=== PATIENT | male | born 1960 | race Caucasian/White ===

== ENCOUNTER 2024-01-18 03:38 | Emergency (ER) | payer OTHER, SELFPAY ==
[2024-01-18 03:45] VITALS: BP 154/81
[2024-01-18 04:06] VITALS: BMI 32.9
[2024-01-18 04:25] LABS: % Basophils 0.3 % (0-2); % Eosinophils 1.7 % (0-6); % Immature Granulocytes 1.6 % (0-0.5); % Lymphocytes 12.4 % (20.5-51.1); % Monocytes 10.2 % (1.7-9.3); % Neutrophils 73.8 % (42.2-75.2); Absolute Eosinophils 0.1 10^3/uL (0-0.7); Absolute Immature Granulocytes 0.1 10^3/uL (0-0.05); Absolute Lymphocytes 0.9 10^3/uL (1.2-3.4); Absolute Monocytes 0.7 10^3/uL (0.1-0.6); Absolute Neutrophils 5.1 10^3/uL (1.4-6.5); Hematocrit 41.4 % (39.0-52.0); Hemoglobin 13.4 g/dL (13.0-18.0); Mean Corp Hgb Conc. 32.4 g/dL (33.0-37.0); Mean Corpuscular Hgb 28.9 pg (27.0-31.0); Mean Corpuscular Volume 89.4 fL (80.0-94.0); Nucleated Red Blood Cells % 0 % (-); Platelet Count 130 10^3/uL (130-400); Red Blood Cell Count 4.63 10^6/uL (4.70-6.10); Red Cell Dist. Width 13.8 % (11.5-14.5)
[2024-01-18 04:42] LABS: Potassium 5.4 mmol/L (3.5-5.1)
[2024-01-18 04:43] LABS: ALT (SGPT) 18 U/L (0-50); AST (SGOT) 30 U/L (17-59); Albumin 4.3 g/dl (3.5-5.0); Alkaline Phosphatase 45 U/L (38-126); Blood Urea Nitrogen 38 mg/dl (9-20); Calcium 9.3 mg/dl (8.4-10.2); Carbon Dioxide 22 mmol/L (22-30); Chloride 105 mmol/L (98-107); Estimated Creatinine Clearance 67 ml/min; Glucose 338 mg/dl (70-99); Lipase 206 U/L (23-300); Sodium 135 mmol/L (135-145); Total Protein 6.7 g/dl (6.3-8.2); eGFR > 60.00
[2024-01-18] MEDS: ZOFRAN 4 MG IV (05:02)
[2024-01-18] MEDS: TORADOL 30 MG IM (05:04)
--- NOTE | 2024-01-18 05:12 | ED.GENMED ---
History of Present Illness
<NUNU Krishnamurthy - Last Filed: 01/18/24 07:11>
General
Chief Complaint: Flank Pain
Source: patient
Exam Limitations: none
Time Seen by Provider: 01/18/24 05:12
Nursing documentation reviewed up to this point in time: agreed with
History of Present Illness
History of Present Illness:
63 year old male presents for evaluation of left lower abdominal pain with radiation to the left flank. Pt reports at 0200 on 01/17 he began experiencing vague abdominal pain that progressed to LLQ pain with radiation to the left flank. Pain reached
an 8-03/23 but is currently 5/10 after receiving Toradol 30 mg IV. He has not had these sx in the past. Pt endorses associated N/V with 2 bouts of vomiting in the ED. He is not currently nauseas after receiving Zofran. Pt adds that he experienced 2-3
bouts of diarrhea yesterday, but denies pain and blood in the stool during these episodes. He has not taken any other medications for his sx. He denies fever, chills, fatigue, dysuria, increased urinary frequency, urgency, and hematuria.
Review of Systems
<NUNU Krishnamurthy - Last Filed: 01/18/24 07:11>
Review of Systems
Allergies reviewed?: Yes
Constitutional: Reports no symptoms
EENT: Reports no symptoms
Respiratory: Reports no symptoms
Cardiac: Reports no symptoms
ABD/GI: Reports abdominal pain (LLQ), nausea and vomiting (2 bouts in the ED)
: Reports flank pain (left)
Musculoskeletal: Reports no symptoms
Skin: Reports no symptoms
Neurological: Reports no symptoms
Endocrine: Reports no symptoms
Hematologic/Lymphatic: Reports no symptoms
Psychiatric: Reports no symptoms
Phy Exam
<NUNU Krishnamurthy - Last Filed: 01/18/24 07:11>
General Physical Exam
General Presentation: well appearing
General age: appears stated age
General Skin: warm
General Habitus: normal
General Mental: alert
General Hydration: appears well hydrated
Cardiovascular Exam
Cardiovascular Exam: regular rate/rhythm and no edema
Pulmonary Exam
Pulmonary Exam: lungs clear and no respiratory distress
Gastrointestinal Exam
Gastrointestinal Exam: normal bowel sounds, non tender (pain resolved with IV Toradol ), non distended and no cva tenderness
Neurological Exam
Neurological Exam: alert and oriented x3
Course
<Neto Ugarte, MA - Last Filed: 01/18/24 07:11>
Orders/Labs/Results
Orders:
Orders
01/18/24 03:53
IV Insert/Care/Rem.- Treatment PRN
01/18/24 04:17
Complete Blood Count/With Diff Urgent
Comprehensive Metabolic Panel Urgent
Lipase Urgent
01/18/24 04:59
Ketorolac [Toradol] 30 mg .ROUTE .STK-MED ONE
Ondansetron Injectable [Zofran] 4 mg .ROUTE .STK-MED ONE
01/18/24 05:01
Ondansetron Injectable [Zofran] 4 mg IV NOW STA
01/18/24 05:04
Ketorolac [Toradol] 30 mg IM NOW STA
01/18/24 05:12
CT Abd/pel Without Iv Or Oral Urgent
Comment:
Reason For Exam: acute left flank pain w n/v
0.9% Sodium Chloride 1000 ml [Nss] 1,000 ml IV BOLUS
01/18/24 07:35
Urinalysis Reflex To Culture Urgent
Date Specimen was Collected: 01/18/24
Time Specimen was Collected: 07:34
Abnormal Lab Results
01/18/24
04:17
RBC 4.63 L 10^6/uL
(4.70-6.10)
MCHC 32.4 L g/dL
(33.0-37.0)
MPV 11.0 H fL
(7.4-10.4)
Abs Immat Gran (auto) 0.1 H 10^3/uL
(0-0.05)
Absolute Lymphs (auto) 0.9 L 10^3/uL
(1.2-3.4)
Absolute Monos (auto) 0.7 H 10^3/uL
(0.1-0.6)
Immature Gran % 1.6 H %
(0-0.5)
Lymphocytes % 12.4 L %
(20.5-51.1)
Monocytes % 10.2 H %
(1.7-9.3)
Potassium 5.4 H mmol/L
(3.5-5.1)
BUN 38 H mg/dl
(9-20)
Glucose 338 H mg/dl
(70-99)
01/18/24 04:17
01/18/24 04:17
Vital Signs
Initial and Last Documented VS:
Initial Vital Signs
Temp Pulse Resp BP Pulse Ox
97.8 F 72 18 154/81 98
01/18/24 03:45 01/18/24 03:45 01/18/24 03:45 01/18/24 03:45 01/18/24 03:45
Last Documented Vital Signs
Temp Pulse Resp BP Pulse Ox
97.8 F 78 16 134/74 96
01/18/24 03:45 01/18/24 06:15 01/18/24 06:15 01/18/24 06:15 01/18/24 06:15
<Regina Thomason, DO - Last Filed: 01/18/24 07:55>
Orders/Labs/Results
Orders:
Orders
01/18/24 03:53
IV Insert/Care/Rem.- Treatment PRN
01/18/24 04:17
Complete Blood Count/With Diff Urgent
Comprehensive Metabolic Panel Urgent
Lipase Urgent
01/18/24 04:59
Ketorolac [Toradol] 30 mg .ROUTE .STK-MED ONE
Ondansetron Injectable [Zofran] 4 mg .ROUTE .STK-MED ONE
01/18/24 05:01
Ondansetron Injectable [Zofran] 4 mg IV NOW STA
01/18/24 05:04
Ketorolac [Toradol] 30 mg IM NOW STA
01/18/24 05:12
CT Abd/pel Without Iv Or Oral Urgent
Comment:
Reason For Exam: acute left flank pain w n/v
0.9% Sodium Chloride 1000 ml [Nss] 1,000 ml IV BOLUS
01/18/24 07:35
Urinalysis Reflex To Culture Urgent
Date Specimen was Collected: 01/18/24
Time Specimen was Collected: 07:34
Abnormal Lab Results
01/18/24
04:17
RBC 4.63 L 10^6/uL
(4.70-6.10)
MCHC 32.4 L g/dL
(33.0-37.0)
MPV 11.0 H fL
(7.4-10.4)
Abs Immat Gran (auto) 0.1 H 10^3/uL
(0-0.05)
Absolute Lymphs (auto) 0.9 L 10^3/uL
(1.2-3.4)
Absolute Monos (auto) 0.7 H 10^3/uL
(0.1-0.6)
Immature Gran % 1.6 H %
(0-0.5)
Lymphocytes % 12.4 L %
(20.5-51.1)
Monocytes % 10.2 H %
(1.7-9.3)
Potassium 5.4 H mmol/L
(3.5-5.1)
BUN 38 H mg/dl
(9-20)
Glucose 338 H mg/dl
(70-99)
01/18/24 04:17
01/18/24 04:17
Vital Signs
Initial and Last Documented VS:
Initial Vital Signs
Temp Pulse Resp BP Pulse Ox
97.8 F 72 18 154/81 98
01/18/24 03:45 01/18/24 03:45 01/18/24 03:45 01/18/24 03:45 01/18/24 03:45
Last Documented Vital Signs
Temp Pulse Resp BP Pulse Ox
97.8 F 78 16 134/74 96
01/18/24 03:45 01/18/24 06:15 01/18/24 06:15 01/18/24 06:15 01/18/24 06:15
<NUNU Krishnamurthy - Last Filed: 01/18/24 07:11>
MDM/Problems Addressed
Differential Diagnosis Includes:
nephrolithiasis, cystitis, pyelonephritis
MDM/Problems Addressed:
CT Abd/pel Without Iv Or Oral.
IV Toradol 30 mg.
<NUNU Krishnamurthy - Last Filed: 01/18/24 07:11>
*Critical Care Note
Total Time (30-74mins, 75-104mins- exclusive of procedures): Not Applicable
<Regina Thomason DO - Last Filed: 01/18/24 07:55>
*Radiology
Radiology exam reviewed: radiology read reviewed
*Pulse Oximetry
Patient hypoxic: no
ED Attending Note
<NUNU Krishnamurthy - Last Filed: 01/18/24 07:11>
-
Portions of this chart may have been created with voice recognition software.� Occasional wrong word or��sound alike� substitutions may have occurred due to the inherent limitations of voice recognition software.
<Regina Thomason DO - Last Filed: 01/18/24 07:55>
ED Attending Note
Patient seen and examined by attending physician: Yes
ED Attending Note:
This is a 63-year-old gentleman who has history of xia-nmpjnnt-alatbsrbs diabetes, hypertension, hyperlipidemia who presents with somewhat abrupt onset of moderate to severe left lateral flank pain that radiates to his left lower quadrant
accompanied with nausea, vomiting, restlessness and diaphoresis. No history of similar episodes of pain in the past.
He was feeling well prior to retiring to bed last night.
After an IV dose of Zofran and Toradol pain is now near completely resolved and no further nausea. Currently resting comfortably.
He has had no urinary complaints. He does note 2-3 episodes of loose nonbloody stools yesterday but no abdominal pain yesterday. He has not had a fever.
GENERAL: 63-year-old gentleman appears his stated age, awake and alert, pleasant, appears in no acute distress.
EYE: anicteric
NECK: Supple, nontender, no meningismus, no significant adenopathy.
ENT: oral mucosa is moist. No rhinorrhea.
CARDIAC: Regular rate and rhythm. no murmur.
LUNGS: Clear breath sounds bilaterally, no acute respiratory distress, no wheezes/rales/rhonchi
ABDOMEN: Rotund, soft, nondistended, without focal tenderness, no r/g, mild left CVA tenderness with percussion. Normoactive BS.
NEUROLOGICAL: Alert and oriented x3, no focal neuro deficits. Gait is montoya and steady.
SKIN: Warm and dry, normal color, skin intact. No rash.
MUSCULOSKELETAL: No C/C/E. peripheral pulses are full and equal b/l. No palpable tenderness.
PSYCH: Normal and appropriate interaction.
History and exam concerning for acute renal colic on the left. Other consideration is gastroenteritis, bowel obstruction.
Currently comfortable and near pain-free.
Labs show unremarkable CBC. Chemistries show
Moderately elevated random glucose of 338. Patient states his blood sugars have been running 150-180, fasting in the a.m.
Moderately elevated BUN of 38, creatinine normal at 1.3. Minimally elevated potassium of 5.4. No acidosis. Urinalysis is pending.
Will plan for CT abdomen pelvis.
01/18/2024 0749 AM
patient remains comfortable and pain-free.
CAT scan shows 6 mm obstructing stone proximal left ureter with mild hydroureteronephrosis.
Patient admits that he generally does not drink fluids well and has been working outdoors during these hot, humid days.
Discussed importance of staying well-hydrated on a daily basis.
With creatinine of 1.3 and obstructing stone we will avoid any further NSAIDs. A prescription for Vicodin has been provided for as needed pain and Zofran for as needed nausea.
Will refer to urology for follow-up.
Awaiting urinalysis results.
Return precautions discussed.
Discharge Plan
Departure
Patient Disposition: Home (Routine Discharge)
Date of Disposition: 01/18/24
Time of Disposition: 07:50
Patient with high blood pressure during this ER visit?: No
Condition: Good
Discharge Problem:
Calculus of proximal left ureter
Instructions: Kidney Stones (DC), How to Strain Your Urine
Prescriptions:
New
ondansetron 4 mg tablet,disintegrating
4 mg PO QID PRN (Reason: nausea and vomiting) Qty: 20 0RF
hydrocodone-acetaminophen 5-300 mg tablet
1 tab PO QIDPRN PRN (Reason: Pain) Qty: 12 0RF
No Action
glipizide 10 mg Tablet
10 mg PO BID
simvastatin 10 mg Tablet
10 mg PO DAILY
pioglitazone 45 mg Tablet
45 mg PO DAILY
lisinopril 10 mg Tablet
10 mg PO DAILY
aspirin 81 mg Tablet
81 mg PO DAILY
Janumet 50-1,000 mg Tablet
1 tab PO BID
Referrals:
Saul Chávez Jr., MD [Active] - Call in 1-3 days for appt
Te Ba MD [Family Provider] -
Interventions
Interventions:
*Risk Screen - Suicide Last Done: 01/18/24 03:45
*General Assessment Last Done: 01/18/24 04:00
*Neglect/Abuse Screening Last Done: 01/18/24 03:45
ED- Fall Risk Assessment Last Done: 01/18/24 04:00
*ED COVID-19 Vaccine History Last Done: 01/18/24 04:00
TH-Azoyfv-Xwzqppbrnu Assessment Last Done: 01/18/24 04:00
ED-Male Genitourinary Assessment Last Done: 01/18/24 04:00
Discharge Date and Time
Print Language: PALAUAN
[2024-01-18] MEDS: NSS 1000 IV (05:16)
[2024-01-18 06:15] VITALS: BP 134/74
[2024-01-18 07:47] LABS: Urine Albumin Negative (Neg - Trace); Urine Bilirubin Negative (Negative); Urine Character Clear (Clear); Urine Color Yellow; Urine Glucose 3+ (Negative); Urine Ketone Trace (Negative); Urine Leukocyte Negative (Negative); Urine Nitrite Negative (Negative); Urine Occult Blood 4+ (Negative); Urine Urobilinogen Negative (Neg - 1+)
[2024-01-18 07:59] LABS: Urine Bacteria Few (Negative); Urine Squamous Cell 0-2 /LPF (Few); Urine White Cell 0-2 /HPF (0-5)
== END 2024-01-18 08:29 | disposition home or self-care (01) ==
LOC: EMR 03:38
PROVIDERS: EMERGENCY PHYSICIAN Emergency Medicine; FAMILY PHYSICIAN Family Medicine
DX: R10.32 Left lower quadrant pain (principal); R11.2 Nausea with vomiting, unspecified; E11.9 Type 2 diabetes mellitus without complications; E78.00 Pure hypercholesterolemia, unspecified; I10 Essential (primary) hypertension; N13.2 Hydronephrosis with renal and ureteral calculous obstruction
CPT/HCPCS: 99284; 96374; 96372; 96361; 74176; 80053; 81003; 81015; 83690; 85025

== ENCOUNTER 2024-02-22 06:07 | Emergency (ER) | payer OTHER, SELFPAY ==
[2024-02-22 06:09] VITALS: BP 170/100
[2024-02-22 07:04] VITALS: BP 169/102
[2024-02-22 07:10] VITALS: BMI 32.5
[2024-02-22 07:37] LABS: % Basophils 0.6 % (0-2); % Eosinophils 2.7 % (0-6); % Immature Granulocytes 2.3 % (0-0.5); % Monocytes 12.4 % (1.7-9.3); Absolute Eosinophils 0.2 10^3/uL (0-0.7); Absolute Immature Granulocytes 0.2 10^3/uL (0-0.05); Absolute Monocytes 0.9 10^3/uL (0.1-0.6); Absolute Neutrophils 4.8 10^3/uL (1.4-6.5); Hematocrit 37.5 % (39.0-52.0); Hemoglobin 12.5 g/dL (13.0-18.0); Mean Corp Hgb Conc. 33.3 g/dL (33.0-37.0); Mean Corpuscular Hgb 29.3 pg (27.0-31.0); Mean Corpuscular Volume 87.8 fL (80.0-94.0); Mean Platelet Volume 10.8 fL (7.4-10.4); Nucleated Red Blood Cells % 0 % (-); Platelet Count 159 10^3/uL (130-400); Red Blood Cell Count 4.27 10^6/uL (4.70-6.10); Red Cell Dist. Width 14.5 % (11.5-14.5)
[2024-02-22 07:43] LABS: ALT (SGPT) 15 U/L (0-50); AST (SGOT) 18 U/L (17-59); Albumin 4.6 g/dl (3.5-5.0); Alkaline Phosphatase 70 U/L (38-126); Blood Urea Nitrogen 32 mg/dl (9-20); Calcium 9.9 mg/dl (8.4-10.2); Carbon Dioxide 27 mmol/L (22-30); Chloride 103 mmol/L (98-107); Estimated Creatinine Clearance 57 ml/min; Glucose 299 mg/dl (70-99); Potassium 5.7 mmol/L (3.5-5.1); Sodium 136 mmol/L (135-145); Total Bilirubin 0.6 mg/dl (0.2-1.3); eGFR 51.99
--- NOTE | 2024-02-22 07:46 | ED.GENMED ---
History of Present Illness
General
Chief Complaint: Extremity Pain (non-traumatic)
Source: patient
Time Seen by Provider: 02/22/24 07:38
History of Present Illness
History of Present Illness:
63-year-old male with past medical history of kjf-nsziumm-lrvdjevti diabetes presenting to the emergency department for evaluation of lower back pain that has been ongoing for approximately 2 to 3 weeks, usually bothering him more so at nighttime,
pain will intermittently radiate down the right leg but this has gotten more constant and severe over the last 48 hours. Patient sister has chronic back pain and sees an roller skate assembler which patient decided to go see on and he reports he
had about 24 hours of relief but then pain started back up again. Last night patient states the pain was at its worst and was unrelenting which is what prompted him to come to the ER this morning. Patient also notes that he was here in this ER
about 7 weeks ago and was diagnosed with a kidney stone which he reportedly passed around 1:30 AM last night. Patient denies any fevers, chills, rigors, nausea, vomiting, bowel changes, current urinary symptoms, numbness to the right lower
extremity (does admit to some occasional paresthesia when pain is worse), saddle anesthesia, traumatic injuries or any other concerns. He denies any history of similar. Social history noncontributory and otherwise no red flag symptoms for pain.
Past History
Past History
ED Past Medical History: Cancer (Melanoma) and NIDDM
ED Past Surgical History: None
Social History
Tobacco: Non-smoker
Alcohol: None
Drug: None
Personal:
Living: alone
Employment: Employed
Review of Systems
Review of Systems
All Other Systems: ROS reviewed and negative except as documented in HPI and ROS
Phy Exam
Physical Exam
Physical Exam:
GENERAL: Alert , in no apparent distress at rest but does appear uncomfortable with movements
EYE: clear conjunctiva b/l
NECK: Supple
ENT: o/p clr, mmm.
ABDOMEN: Soft, without focal tenderness, no r/g, no cvat
BACK: Normal range of motion but does have pain with forward flexion, mild right paralumbar tenderness, no midline bony tenderness, no rashes
NEUROLOGICAL: Alert and oriented, no focal neuro deficits. Patellar deep tendon reflexes intact and equal bilaterally, sensation grossly intact and equal to light touch bilateral lower extremities, negative straight leg raise however patient does
report he feels a tightening and pain in the right part of his lower back
SKIN: Warm and dry, skin intact.
MUSCULOSKELETAL: No edema, well perfused. EHL intact bilaterally
PSYCH: Normal and appropriate interaction.
Scores
Heart Failure Risk
Heart Failure Risk Score: Not Applicable
Heart Score for Chest Pain Patients
STEMI patient?: Not applicable
Withdrawal Assessment of Alcohol
Withdrawal Assessment Completed?: Not applicable
Course
Orders/Labs/Results
Orders:
Orders
02/22/24 07:20
CMP [Comprehensive Metabolic Panel] Urgent
Complete Blood Count/With Diff Urgent
02/22/24 07:46
CR Lumbar Spine Comp Min 4 Vw* Urgent
Comment:
Reason For Exam: right sided lower back pain going in to leg
02/22/24 09:14
Ibuprofen [Motrin] 600 mg PO NOW STA
Lidocaine [Lidocaine 4% Patch] 1 patch TOPICAL NOW STA
Apply Lidocaine patch(s) to:: right lower back
02/22/24 09:22
Urinalysis Reflex To Culture Urgent
Date Specimen was Collected: 02/22/24
Time Specimen was Collected: 07:54
Abnormal Lab Results
02/22/24
07:20
RBC 4.27 L 10^6/uL
(4.70-6.10)
Hgb 12.5 L g/dL
(13.0-18.0)
Hct 37.5 L %
(39.0-52.0)
MPV 10.8 H fL
(7.4-10.4)
Abs Immat Gran (auto) 0.2 H 10^3/uL
(0-0.05)
Absolute Lymphs (auto) 1.0 L 10^3/uL
(1.2-3.4)
Absolute Monos (auto) 0.9 H 10^3/uL
(0.1-0.6)
Immature Gran % 2.3 H %
(0-0.5)
Lymphocytes % 14.0 L %
(20.5-51.1)
Monocytes % 12.4 H %
(1.7-9.3)
Potassium 5.7 H mmol/L
(3.5-5.1)
BUN 32 H mg/dl
(9-20)
Creatinine 1.5 H mg/dL
(0.7-1.3)
Glucose 299 H mg/dl
(70-99)
02/22/24 07:20
02/22/24 07:20
Vital Signs
Initial and Last Documented VS:
Initial Vital Signs
Temp Pulse Resp BP Pulse Ox
98.1 F 86 22 170/100 100
02/22/24 06:09 02/22/24 06:09 02/22/24 06:09 02/22/24 06:09 02/22/24 06:09
Last Documented Vital Signs
Temp Pulse Resp BP Pulse Ox
98.1 F 83 18 169/102 98
02/22/24 06:09 02/22/24 07:15 02/22/24 07:15 02/22/24 07:04 02/22/24 07:10
MDM/Problems Addressed
Differential Diagnosis Includes:
Sciatica, lumbar strain, degenerative disc disease/disc herniation, nerve impingement, no symptoms to suggest infectious etiology such as osteomyelitis/discitis or spinal epidural abscess/psoas muscle abscess
MDM/Problems Addressed:
63-year-old male presenting to the emergency department for evaluation of right-sided lower back pain that has been ongoing for about 2 to 3 weeks, acutely worse over the last 48 hours. No relief with Tylenol. Patient noting new symptoms over the
last few days with pain now radiating down his leg on the right side as well as some intermittent episodes of his right leg giving out. States currently pain is under control as he is laying flat and not moving. He is declining anything for pain
here in the ER presently. Based off of exam I am most suspicious for degenerative disc disease/disc herniation or small nerve impingement. Anticipate treatment with anti-inflammatories, steroid taper, muscle relaxant and topical agents. Discussed
with patient that at this time he does not need emergent MRI however he may need an outpatient MRI to further investigate cause of pain. Patient will follow-up with primary care provider. Anticipate discharge home.
Patient did have a CT scan done on January 18, 2024 which noted bilateral L5 spondylolysis as well as L5 spondylolisthesis and L5 and S1 degenerative disc space narrowing
*Radiology
Radiology exam reviewed: preliminary read by ED provider (degenerative changes)
*Pulse Oximetry
Patient hypoxic: no
*Critical Care Note
Total Time (30-74mins, 75-104mins- exclusive of procedures): Not Applicable
Data Reviewed
Review of Other/Old Records Reveals: Labs and Records
Source: patient
Patient Management
Escalation/DeEscalation of care consider admission/obs:
Patient labs noted for LESLIE. suspect this is related to recently passed kidney stone. XR does show degenerative changes most pronounced at L5-S1. I still suspect this is most likely muscular in origin. Advised close follow up with PCP especially to
have labs repeated. Patient informed of elevated glucose as well. Aware of return precautions to ED.
ED Attending Note
-
Portions of this chart may have been created with voice recognition software.� Occasional wrong word or��sound alike� substitutions may have occurred due to the inherent limitations of voice recognition software.
Discharge Plan
Departure
Patient Disposition: Home (Routine Discharge)
Date of Disposition: 02/22/24
Time of Disposition: 09:14
Patient with high blood pressure during this ER visit?: Yes
Discharge Problem:
Lower back pain, LESLIE (acute kidney injury), Diabetes
Instructions: Low Back Pain (DC)
Prescriptions:
New
hydrocodone-acetaminophen 5-300 mg tablet
1 tab PO BID PRN (Reason: Pain) Qty: 6 0RF
naproxen 500 mg tablet
500 mg PO BID PRN (Reason: Pain) Qty: 10 0RF
No Action
glipizide 10 mg Tablet
10 mg PO BID
simvastatin 10 mg Tablet
10 mg PO DAILY
pioglitazone 45 mg Tablet
45 mg PO DAILY
lisinopril 10 mg Tablet
10 mg PO DAILY
aspirin 81 mg Tablet
81 mg PO DAILY
Janumet 50-1,000 mg Tablet
1 tab PO BID
ondansetron 4 mg tablet,disintegrating
4 mg PO QID PRN (Reason: nausea and vomiting) Qty: 20 0RF
Referrals:
Te Ba MD [Family Provider] -
Interventions
Interventions:
*Risk Screen - Suicide Last Done: 02/22/24 06:09
*General Assessment Last Done: 02/22/24 07:10
*Neglect/Abuse Screening Last Done: 02/22/24 06:09
ED- Fall Risk Assessment Last Done: 02/22/24 07:10
*ED COVID-19 Vaccine History Last Done: 02/22/24 07:10
*Nursing Disposition Last Done: 02/22/24 09:33
ED-Skin Assessment Last Done: 02/22/24 07:10
ED-Peripheral Vascular Assessment Last Done: 02/22/24 07:10
ED-Musculoskeletal Assessment Last Done: 02/22/24 07:10
Discharge Date and Time
Discharge Date/Time: 02/22/24 09:33
Print Language: SENEGALESE
[2024-02-22] MEDS: MOTRIN 600 MG PO (09:17)
[2024-02-22] MEDS: LIDOCAINE 4% PATCH 1 PATCH TOPICAL (09:18)
[2024-02-22 10:02] LABS: Urine Albumin Negative (Neg - Trace); Urine Bilirubin Negative (Negative); Urine Character Clear (Clear); Urine Color Yellow; Urine Glucose 3+ (Negative); Urine Ketone Negative (Negative); Urine Leukocyte 1+ (Negative); Urine Nitrite Negative (Negative); Urine Occult Blood Trace (Negative); Urine Specific Gravity 1.015 (<1.030); Urine Urobilinogen Negative (Neg - 1+)
[2024-02-22 10:36] LABS: Urine Bacteria Few (Negative); Urine Red Blood Cell 0-2 /HPF (0-2); Urine White Cell 26-30 /HPF (0-5)
== END 2024-02-22 09:33 | disposition home or self-care (01) ==
LOC: EMR 06:07
PROVIDERS: Physician Assistant Medical; EMERGENCY PHYSICIAN Emergency Medicine; FAMILY PHYSICIAN Family Medicine
DX: M54.50 Low back pain, unspecified (principal); M79.604 Pain in right leg; R20.2 Paresthesia of skin; N17.9 Acute kidney failure, unspecified; E11.9 Type 2 diabetes mellitus without complications; M51.37 Other intervertebral disc degeneration, lumbosacral region; M43.17 Spondylolisthesis, lumbosacral region; Z85.820 Personal history of malignant melanoma of skin; Z87.442 Personal history of urinary calculi; Z79.82 Long term (current) use of aspirin
CPT/HCPCS: 99283; 72110; 80053; 81003; 81015; 85025; 87086

== ENCOUNTER 2024-02-27 15:54 | Inpatient (IN) | payer OTHER, SELFPAY ==
[2024-02-27] VITALS (12 sets, daily range): BP systolic 123–163; BP diastolic 79–102; BMI 31.9
--- NOTE | 2024-02-27 11:39 | ED.GENMED ---
History of Present Illness
<Fredi Floyd PA-C - Last Filed: 02/27/24 14:45>
General
Chief Complaint: Musculo-Skeletal Complaint
Source: patient
Time Seen by Provider: 02/27/24 11:19
History of Present Illness
History of Present Illness:
63-year-old male with past medical history of vqc-jijyisi-jtpzxwynu diabetes presenting to the emergency department for reevaluation after being seen here 5 days ago and diagnosed with degenerative changes within the lumbar spine as the cause of his
back pain presenting back to the emergency department for progression of weakness to his bilateral lower extremities, estimates 6-7 falls within the 5 days and feeling of unsteadiness when he walks. Patient still notes continued radicular pain
mainly to the right leg. He is seen the chiropractor twice but without any relief. Patient contacted his primary care provider today who states due to the symptoms would recommend going to the ER for further evaluation. Patient notes that he has
been unable to monitor his blood sugars at home but is scheduled to get a new test strips kit on Friday. He does report good compliance with his diabetes medications. Patient notes that over the last 5 days he has intermittently dribbled some
urine but still feels as if he is emptying his bladder completely and had a normal bowel movement this morning. Patient still notes the paresthesias to the right leg but also now noting he feels these paresthesias within the groin region as well.
Past History
<Fredi Floyd PA-C - Last Filed: 02/27/24 14:45>
Past History
ED Past Medical History: Cancer (Melanoma) and NIDDM
ED Past Surgical History: None
Social History
Tobacco: Non-smoker
Alcohol: None
Drug: None
Personal:
Living: alone
Employment: Employed
Review of Systems
<Fredi Floyd PA-C - Last Filed: 02/27/24 14:45>
Review of Systems
All Other Systems: ROS reviewed and negative except as documented in HPI and ROS
Phy Exam
<Fredi Floyd PA-C - Last Filed: 02/27/24 14:45>
Physical Exam
Physical Exam:
GENERAL: Alert , in no apparent distress
EYE: clear conjunctiva b/l
NECK: Supple
ENT: mmm.
CARDIAC: Regular rate and rhythm .
LUNGS: Clear breath sounds bilaterally, no acute respiratory distress, no wheezes/rales/rhonchi
ABDOMEN: Soft, without focal tenderness, no r/g, no cvat
BACK: Normal range of motion, no focal tenderness, no midline bony tenderness, no rashes
Rectal exam: Normal rectal tone
NEUROLOGICAL: Alert and oriented, no focal neuro deficits. Patellar deep tendon reflexes absent bilaterally, sensation diminished bilaterally, right worse than left. Strength to the lower extremities is 4 out of 5 to the right, 4+ out of 5 to the
left. Negative straight leg raise bilateral
SKIN: Warm and dry, skin intact.
MUSCULOSKELETAL: No edema, well perfused. EHL intact bilaterally
PSYCH: Normal and appropriate interaction.
Scores
<Fredi Floyd PA-C - Last Filed: 02/27/24 14:45>
Heart Failure Risk
Heart Failure Risk Score: Not Applicable
Heart Score for Chest Pain Patients
STEMI patient?: Not applicable
Withdrawal Assessment of Alcohol
Withdrawal Assessment Completed?: Not applicable
Course
<Fredi Floyd PA-C - Last Filed: 02/27/24 14:45>
Orders/Labs/Results
Orders:
Orders
02/27/24 11:46
Basic Metabolic Panel Urgent
CRP [C-Reactive Protein] Urgent
Complete Blood Count/With Diff Urgent
ESR [Erythrocyte Sed Rate] Urgent
Hemoglobin A1c [Glycohemoglobin (HgbA1c)] Urgent
PTT Urgent
Prothrombin Time Urgent
02/27/24 12:05
Orbits Pre MRI CR [CR Orbits - Pre Mri] Urgent
Comment:
Reason For Exam: pre-MRI, previous injury
02/27/24 13:05
Urinalysis Reflex To Culture Urgent
Date Specimen was Collected: 02/27/24
Time Specimen was Collected: 13:00
02/27/24 14:28
EMG [Electromyography] Routine
Reason for Exam: ?gbs; 4 limb
02/27/24 14:33
MR Lumbar W/o & With Contrast Routine
Comment:
Reason For Exam: lower extremity weakness, no reflexes, back pain
Recent pill cam endoscopy?: No
02/27/24 14:39
Pft Nif [RESP] Stat
Vital Capacity [RESP] Stat
Quantity: 1
02/27/24 20:00
Pft Nif [RESP] BID
Vital Capacity [RESP] BID
Quantity: 6
02/28/24 08:00
Pft Nif [RESP] BID
Vital Capacity [RESP] BID
Quantity: 6
02/28/24 20:00
Pft Nif [RESP] BID
Vital Capacity [RESP] BID
Quantity: 6
02/29/24 08:00
Pft Nif [RESP] BID
Vital Capacity [RESP] BID
Quantity: 6
02/29/24 20:00
Pft Nif [RESP] BID
Vital Capacity [RESP] BID
Quantity: 6
03/01/24 08:00
Pft Nif [RESP] BID
Vital Capacity [RESP] BID
Quantity: 6
Abnormal Lab Results
02/27/24 02/27/24
11:46 13:05
RBC 4.36 L 10^6/uL
(4.70-6.10)
Hct 38.6 L %
(39.0-52.0)
RDW 14.6 H %
(11.5-14.5)
MPV 10.5 H fL
(7.4-10.4)
Abs Immat Gran (auto) 0.1 H 10^3/uL
(0-0.05)
Absolute Lymphs (auto) 0.9 L 10^3/uL
(1.2-3.4)
Absolute Monos (auto) 1.0 H 10^3/uL
(0.1-0.6)
Immature Gran % 1.4 H %
(0-0.5)
Lymphocytes % 13.2 L %
(20.5-51.1)
Monocytes % 13.6 H %
(1.7-9.3)
Sodium 132 L mmol/L
(135-145)
Potassium 5.2 H mmol/L
(3.5-5.1)
Carbon Dioxide 21 L mmol/L
(22-30)
BUN 39 H mg/dl
(9-20)
Glucose 390 H mg/dl
(70-99)
Hemoglobin A1c 8.7 H %
(4.0-5.6)
Urine Glucose 3+ A
(Negative)
02/27/24 11:46
02/27/24 11:46
Vital Signs
Initial and Last Documented VS:
Initial Vital Signs
Temp Pulse Resp BP Pulse Ox
98.6 F 107 18 149/102 96
02/27/24 11:10 02/27/24 11:10 02/27/24 11:10 02/27/24 11:10 02/27/24 11:10
Last Documented Vital Signs
Temp Pulse Resp BP Pulse Ox
98.6 F 110 16 163/85 98
02/27/24 11:10 02/27/24 14:03 02/27/24 14:03 02/27/24 14:00 02/27/24 14:03
<Jayesh Odonnell MD - Last Filed: 02/27/24 12:12>
Orders/Labs/Results
Orders:
Orders
02/27/24 11:46
Basic Metabolic Panel Urgent
CRP [C-Reactive Protein] Urgent
Complete Blood Count/With Diff Urgent
ESR [Erythrocyte Sed Rate] Urgent
Hemoglobin A1c [Glycohemoglobin (HgbA1c)] Urgent
PTT Urgent
Prothrombin Time Urgent
02/27/24 12:05
Orbits Pre MRI CR [CR Orbits - Pre Mri] Urgent
Comment:
Reason For Exam: pre-MRI, previous injury
02/27/24 13:05
Urinalysis Reflex To Culture Urgent
Date Specimen was Collected: 02/27/24
Time Specimen was Collected: 13:00
02/27/24 14:28
EMG [Electromyography] Routine
Reason for Exam: ?gbs; 4 limb
02/27/24 14:33
MR Lumbar W/o & With Contrast Routine
Comment:
Reason For Exam: lower extremity weakness, no reflexes, back pain
Recent pill cam endoscopy?: No
02/27/24 14:39
Pft Nif [RESP] Stat
Vital Capacity [RESP] Stat
Quantity: 1
02/27/24 20:00
Pft Nif [RESP] BID
Vital Capacity [RESP] BID
Quantity: 6
02/28/24 08:00
Pft Nif [RESP] BID
Vital Capacity [RESP] BID
Quantity: 6
02/28/24 20:00
Pft Nif [RESP] BID
Vital Capacity [RESP] BID
Quantity: 6
02/29/24 08:00
Pft Nif [RESP] BID
Vital Capacity [RESP] BID
Quantity: 6
02/29/24 20:00
Pft Nif [RESP] BID
Vital Capacity [RESP] BID
Quantity: 6
03/01/24 08:00
Pft Nif [RESP] BID
Vital Capacity [RESP] BID
Quantity: 6
Abnormal Lab Results
02/27/24 02/27/24
11:46 13:05
RBC 4.36 L 10^6/uL
(4.70-6.10)
Hct 38.6 L %
(39.0-52.0)
RDW 14.6 H %
(11.5-14.5)
MPV 10.5 H fL
(7.4-10.4)
Abs Immat Gran (auto) 0.1 H 10^3/uL
(0-0.05)
Absolute Lymphs (auto) 0.9 L 10^3/uL
(1.2-3.4)
Absolute Monos (auto) 1.0 H 10^3/uL
(0.1-0.6)
Immature Gran % 1.4 H %
(0-0.5)
Lymphocytes % 13.2 L %
(20.5-51.1)
Monocytes % 13.6 H %
(1.7-9.3)
Sodium 132 L mmol/L
(135-145)
Potassium 5.2 H mmol/L
(3.5-5.1)
Carbon Dioxide 21 L mmol/L
(22-30)
BUN 39 H mg/dl
(9-20)
Glucose 390 H mg/dl
(70-99)
Hemoglobin A1c 8.7 H %
(4.0-5.6)
Urine Glucose 3+ A
(Negative)
02/27/24 11:46
02/27/24 11:46
Vital Signs
Initial and Last Documented VS:
Initial Vital Signs
Temp Pulse Resp BP Pulse Ox
98.6 F 107 18 149/102 96
02/27/24 11:10 02/27/24 11:10 02/27/24 11:10 02/27/24 11:10 02/27/24 11:10
Last Documented Vital Signs
Temp Pulse Resp BP Pulse Ox
98.6 F 110 16 163/85 98
02/27/24 11:10 02/27/24 14:03 02/27/24 14:03 02/27/24 14:00 02/27/24 14:03
<Fredi Floyd PA-C - Last Filed: 02/27/24 14:45>
MDM/Problems Addressed
Differential Diagnosis Includes:
Cauda equina, abscess, disc herniation/nerve impingement, Guillain-Angel�
MDM/Problems Addressed:
63-year-old male presenting the ER with gradually worsening weakness to the bilateral lower extremities however right is worse than left. Seen in the ER 5 days ago and had x-ray done which showed L5 degenerative changes which correlated with CT
findings from a few weeks prior. In that time patient has had multiple falls. He has objective findings of weakness, absent lower extremity reflexes and sensory deficits. It was noted on patient's last visit to the ER that he had significantly
elevated glucose. Is certainly possible patient may have abscess or other infectious etiology from uncontrolled diabetes. Patient may also also have degenerative findings/nerve or spinal cord impingement. Discussed with radiology and we will
obtain stat MRI with and without contrast of the lumbar spine. Fall precautions initiated. Anticipate admission
Chronic conditions affecting care: DM
<Fredi Floyd PA-C - Last Filed: 02/27/24 14:45>
*Radiology
Radiology exam reviewed: preliminary read by ED provider (no FB on orbit XR)
*Pulse Oximetry
Patient hypoxic: no
*Critical Care Note
Total Time (30-74mins, 75-104mins- exclusive of procedures): Not Applicable
Data Reviewed
Review of Other/Old Records Reveals: Labs, Records and Radiology Studies
<Fredi Floyd PA-C - Last Filed: 02/27/24 14:45>
Comment
Comment:
orbit XR ordered for pre-MRI testing. No FB seen.
Patient Management
Discussion with other providers: Hospitalist and Sewer Connector
Escalation/DeEscalation of care consider admission/obs:
Neuro came to ED to see patient. clinical concern for guillan barre. Still needs MRI. Plan to admit to hospitalist team for continued evaluation. Hospitalist accepts for continued eval and treatment
ED Attending Note
<Fredi Floyd PA-C - Last Filed: 02/27/24 14:45>
-
Portions of this chart may have been created with voice recognition software.� Occasional wrong word or��sound alike� substitutions may have occurred due to the inherent limitations of voice recognition software.
<Jayesh Odonnell MD - Last Filed: 02/27/24 12:12>
ED Attending Note
Patient seen and examined by attending physician: Yes
I performed the substantive portion of visit, reviewed & personally made and approve the management plan that is documented in note by myself or BARRERA.: Yes
ED Attending Note:
63-year-old male with progressive lower extremity weakness right greater than left and some low back pain. Symptoms started 2 weeks ago. Seen 5 days ago for same. No fever or chills. Notes some mild urinary symptoms. No bladder or bowel
incontinence however. Does volunteer that he has some tingling in his perineal area.
On exam patient is nontoxic in no distress
Warm and dry. Perfusing well. No respiratory distress. Heart regular rate and rhythm. No murmur. Abdomen soft and nontender. Good perfusion to the extremities. Cranial nerves II through XII intact. No drift. [id number] normal. Patient
has no patellar reflexes. Some difficulty raising his legs bilaterally right greater than left. He can lift them off the stretcher but with some difficulty. Plantar dorsiflexion of the feet intact. Pinprick and light touch intact except for
possibly some difficulties with the right foot. Rectal tone is normal. No obvious perianal or perineal paresthesias.
Differential includes a lumbar etiology which would include abscess although no infectious symptoms, hematoma although no blood thinners. Differential would also include Guillain-Angel� syndrome. Lumbar MRI with and without contrast ordered.
Neurology was contacted for their involvement. Patient clearly warrants admission. Would likely need transfer if there was an acute neurosurgical emergency.
Discharge Plan
Departure
Patient Disposition: Admit
Date of Disposition: 02/27/24
Time of Disposition: 14:26
Presentation/result/management discussed w/ accepting MD/DO: Hospitalist
Discharge Problem:
Leg weakness, bilateral, Dorsalgia, Uncontrolled diabetes mellitus
Prescriptions:
No Action
glipizide 10 mg Tablet
10 mg PO BID
simvastatin 10 mg Tablet
10 mg PO HS
pioglitazone 45 mg Tablet
45 mg PO DAILY
lisinopril 10 mg Tablet
10 mg PO HS
Janumet 50-1,000 mg Tablet
1 tab PO BID
Theragen Tablet
1 tab PO DAILY
aspirin 81 mg Tablet,Delayed Release (Dr/Ec)
81 mg PO HS
ibuprofen 200 mg Tablet
600 mg PO Q6HPRN PRN (Reason: mild pain)
Referrals:
Te Ba MD [Family Provider] -
Interventions
Interventions:
*Risk Screen - Suicide Last Done: 02/27/24 11:10
*General Assessment Last Done: 02/27/24 11:10
*Neglect/Abuse Screening Last Done: 02/27/24 11:10
*ED COVID-19 Vaccine History Last Done: 02/27/24 11:30
ED-Musculoskeletal Assessment Last Done: 02/27/24 11:30
Discharge Date and Time
Print Language: HEBREW
[2024-02-27 11:55] LABS: % Basophils 0.4 % (0-2); % Eosinophils 2.1 % (0-6); % Immature Granulocytes 1.4 % (0-0.5); % Lymphocytes 13.2 % (20.5-51.1); % Monocytes 13.6 % (1.7-9.3); % Neutrophils 69.3 % (42.2-75.2); Absolute Eosinophils 0.2 10^3/uL (0-0.7); Absolute Immature Granulocytes 0.1 10^3/uL (0-0.05); Absolute Lymphocytes 0.9 10^3/uL (1.2-3.4); Absolute Neutrophils 4.9 10^3/uL (1.4-6.5); Hematocrit 38.6 % (39.0-52.0); Mean Corp Hgb Conc. 33.7 g/dL (33.0-37.0); Mean Corpuscular Hgb 29.8 pg (27.0-31.0); Mean Corpuscular Volume 88.5 fL (80.0-94.0); Mean Platelet Volume 10.5 fL (7.4-10.4); Nucleated Red Blood Cells % 0 % (-); Platelet Count 148 10^3/uL (130-400); Red Blood Cell Count 4.36 10^6/uL (4.70-6.10); Red Cell Dist. Width 14.6 % (11.5-14.5); White Blood Cell Count 7.1 10^3/uL (4.8-10.8)
[2024-02-27 12:05] LABS: INR 1.02; PT 13.3 Sec (11.4-14.6)
[2024-02-27 12:06] LABS: APTT 25.9 Sec (23.4-35.0)
[2024-02-27 12:09] LABS: Blood Urea Nitrogen 39 mg/dl (9-20); Calcium 9.9 mg/dl (8.4-10.2); Carbon Dioxide 21 mmol/L (22-30); Chloride 99 mmol/L (98-107); Glucose 390 mg/dl (70-99); Potassium 5.2 mmol/L (3.5-5.1); Sodium 132 mmol/L (135-145); eGFR > 60.00
[2024-02-27 12:11] LABS: C-Reactive Protein < 5.00 mg/L (0.0-10.00)
[2024-02-27 13:23] LABS: Urine Albumin Negative (Neg - Trace); Urine Bilirubin Negative (Negative); Urine Character Clear (Clear); Urine Color Yellow; Urine Glucose 3+ (Negative); Urine Ketone Negative (Negative); Urine Leukocyte Negative (Negative); Urine Nitrite Negative (Negative); Urine Occult Blood Negative (Negative); Urine Urobilinogen Negative (Neg - 1+)
[2024-02-27 13:30] LABS: Glycohemoglobin (HgbA1c) 8.7 % (4.0-5.6)
[2024-02-27 13:31] LABS: Erythrocyte Sed Rate 13 mm/hour (0-20)
--- NOTE | 2024-02-27 14:28 | CON.NEURO4 ---
Addendum entered and electronically signed by Saranya Lloyd, DO 02/27/24 21:21:
MRI Lspine showed:
1. At L5-S1, spondylosis and grade 1 anterolisthesis secondary to bilateral L5 pars interarticularis spondylolysis, similar to that seen on the recent prior lumbar spine radiographs from 02/22/2024.
2. No spinal canal stenosis.
3. Mild bilateral neuroforaminal stenoses, as detailed above.
4. No abnormal postcontrast enhancement.
LP to be done tomorrow AM by IR.
Addendum entered and electronically signed by Saranya Lloyd, DO 02/27/24 21:17:
EMG/NCS c/w GBS. IVIG started.
Original Note:
Consultation - Neurology 4
-
CONSULTING PHYSICIAN: Prema
REFERRING PHYSICIAN: Blas
DICTATED BY: Prema
DATE/TIME OF REQUEST: 02/27/24
DATE/TIME OF CONSULTATION: 02/27/24 at 1430
Reason for Consultation: weakness
History of Present Illness:
63-year-old male with past medical history of diabetes, melanoma and sciatica/low back pain presents for evaluation for worsening bilateral lower extremity weakness. He states that about 17 days ago he injured his shoulder at work. He works
full-time in construction. About 2 days later he noticed that morning he had tingling in both knees which was new for him. Gradually he started having weakness in his right lower extremity. He cannot say if it was proximal or distal. This
coincided with a dull achy pain on the lateral aspect of his right leg radiating down from his back which she describes as his standard sciatica pain. Then over the next several days he started having similar weakness in his left lower extremity as
well. He has fallen 7 times since Friday. He did come in to the ER for evaluation on Friday and was discharged home. No new medications. He did recently see an civil attorney to see if this would help. No recent infection/GI illness or
vaccination.
Past Medical History: Melanoma and NIDDM, sciatica/low back pain
ast Surgical History: None
Social History
Tobacco: Non-smoker
Alcohol: None
Drug: None
Personal:
Living: alone
Employment: Employed--works in construction
Allergies
No Known Allergies Allergy (Verified 02/22/24 06:12)
Home Medications
�Medication �Instructions �Recorded
glipizide 10 mg tablet 10 mg PO BID 01/18/24
lisinopril 10 mg tablet 10 mg PO HS 01/18/24
pioglitazone 45 mg tablet 45 mg PO DAILY 01/18/24
simvastatin 10 mg tablet 10 mg PO HS 01/18/24
sitagliptin phosphate 50 1 tab PO BID 01/18/24
mg-metformin 1,000 mg tablet
(Janumet)
aspirin 81 mg tablet,delayed 81 mg PO HS 02/27/24
release
ibuprofen 200 mg tablet 600 mg PO Q6HPRN PRN mild pain 02/27/24
therapeutic multivitamin 1 tab PO DAILY 02/27/24
Review of Symptoms:
Patient denies any fever, headache, chest pain, shortness of breath, GI or symptoms.
�Per the HPI.�All systems are reviewed negative except above.
Vital Signs
Temp Pulse Resp BP Pulse Ox
98.6 F 110 16 163/85 98
02/27/24 11:10 02/27/24 14:03 02/27/24 14:03 02/27/24 14:00 02/27/24 14:03
Lab Results
02/27/24 11:46
02/27/24 11:46
PT 13.3 Sec (11.4-14.6) 02/27/24 11:46
INR 1.02 02/27/24 11:46
APTT 25.9 Sec (23.4-35.0) 02/27/24 11:46
Sodium 132 mmol/L (135-145) L 02/27/24 11:46
Potassium 5.2 mmol/L (3.5-5.1) H 02/27/24 11:46
BUN 39 mg/dl (9-20) H 02/27/24 11:46
Glucose 390 mg/dl (70-99) H 02/27/24 11:46
Calcium 9.9 mg/dl (8.4-10.2) 02/27/24 11:46
Physical Exam:
The patient is afebrile, heart sounds S1 and S2 are regular , and chest is clear to auscultation bilaterally.
Neurologic Examination:
The patient is awake, alert and oriented x 3. He is able to follow commands and answer questions appropriately. There is no aphasia or dysarthria. On cranial nerve assessment, pupils are 3 mm bilateral, round and reactive to light and
accommodation. Visual gupta are full. Extraocular movements are intact. Facial sensations are intact and bilaterally symmetrical, there is no facial asymmetry. Hearing is intact bilaterally to normal conversation volume. Tongue palate and uvula
are midline. Sternocleidomastoid strengths are full bilaterally. Motor strengths are 4-/5 proximally in BLE, distally 5-. There is no drift or involuntary movement noted. Deep tendon reflexes are 2+ in BUE and absent in BLE. Sensations of
temperature and light touch were diminished in a length dependent fashion to the midshin bilaterally. There was no extinction noted on double simultaneous stimulation. Coordination is intact by finger to nose bilaterally.
Neuro Imaging: none
Impression:
YESICA DE SOUZA is a 63 year old M who has presented to the hospital with worsening of BLE weakness over several days with areflexia in BLE.
Differentials for the patient's presentation include:
1. GBS
2. ?Lspine stenosis/compression; less likely but does not have a history of sciatica, LBP
Recommendations:
1. MRI Lspine w/wo contrast now
2. EMg/NCS 4 limbs to be done in ER
3. IVIG depending upon results of above
4. NIF/VC
5. neurochecks
Discussed patient care with: patient and family, ER
--- NOTE | 2024-02-27 16:01 | HPS.HSE ---
Addendum entered and electronically signed by Pacheco Redmond MD 02/28/24 13:21:
Presenting with bilateral lower extremity weakness with increase in number of falls. Per ED areflexic. Concerning for GBS therefore neurology consulted. Recommended EMG therefore PM&R please obtain in completed which demonstrated findings
consistent with GBS. MRI lumbar spine obtained which shows some spondylosis with anterolisthesis.
Guillain-Angel� syndrome
-Check COVID flu
-Check Lyme
-Without diarrhea to suspect Campylobacter
-Neurology recommends LP, IR consulted, will need to send fluid analysis with cytology and culture
-Neurology recommends IVIG, ordered
-Continue NIF/VC
-Continue neurochecks
-Start incentive spirometer
Diabetes with uncontrolled hyperglycemia
Check A1c, sliding scale, goal blood glucose 140-180, carb controlled diet
Hyperkalemia
No indication for temporizing measures at this time. Avoid K sparing agents. Low K diet
Hyponatremia�euvolemic
Encourage p.o. intake and fluid intake
Original Note:
Family Physician
-
Family Physician: Te Ba
Chief Complaint
-
Progressive Weakness in Bilateral Lower Extremities
History of Present Illness
63-year-old male with past medical history of zto-duzxotm-[id number] diabetes presented to the emergency department due to progressive weakness in his bilateral extremities. Patient was seen in [facility] ED 5 days ago and diagnosed with degenerative changes
within the lumbar spine. Patient was discharged from the ED but continued to have worsening weakness causing him to have multiple (6-7) falls in the past 5 days, these falls were precipitated by his legs feeling wobbly and giving away. Patient says
his sciatic pain is worse at night and improves in the morning. Patient still complains of pain radiating down from his back to his lower extremities, mainly to the right. Patient has a history of non-insulin dependent diabetes which has been
managed with oral antiglycemic agents but patient says he hasn't been as diligent with his diet or medications because of the sciatic pain. Patient has been unable to monitor his blood glucose levels recently as he does not have his test strips as
of yet.
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 He was given ibuprofen for the rotator cuff but a few days later, he started feeling tingling in his right knee. This then lead to the
increased sciatic pain and him going to the ED initially.
Patient complained of having dribbled some urine over the past 5 days but does not feel like he has incomplete emptying of the bladder. He has also been having normal bowel movements, his most recent one being this morning. Patient has also been
having some paresthesias to the right leg which have now started occurring in the groin as well.
Medical History
Past Medical History
Past Medical History: Reports Cancer (Melanoma) and NIDDM
Past Surgical History: Reports None
Social History
Tobacco: Non-smoker
Alcohol: None
Drug: None
Personal:
Living: Alone
Employment: Employed (Self-Employed, [employer])
Family History
Family History: Not pertinent
Allergies / Home Medications
Allergies reflects when Allergies were last updated in [facility].
Home Medications with original date entered in [facility]
Allergy/Medication List:
Allergies
Allergy/AdvReac Type Severity Reaction Status Date / Time
No Known Allergies Allergy Verified 02/22/24 06:12
Home Medications
glipizide 10 mg tablet 10 mg PO BID 01/18/24
lisinopril 10 mg tablet 10 mg PO HS 01/18/24
pioglitazone 45 mg tablet 45 mg PO DAILY 01/18/24
simvastatin 10 mg tablet 10 mg PO HS 01/18/24
sitagliptin phosphate 50 mg-metformin 1,000 mg tablet (Janumet) 1 tab PO BID 01/18/24
aspirin 81 mg tablet,delayed release 81 mg PO HS 02/27/24
ibuprofen 200 mg tablet 600 mg PO Q6HPRN PRN mild pain 02/27/24
therapeutic multivitamin 1 tab PO DAILY 02/27/24
Review of Systems
-
History Source: Patient
A 12 point ROS was completed and negative except as noted: Yes
Constitutional: Denies Fever or Fatigue
Respiratory: Denies Cough or Trouble Breathing
Cardiac: Denies Chest Pain, Diaphoresis, Palpitations or Syncope
Abdomen/GI: Denies Abdominal Pain, Nausea or Vomiting
: Denies Dysuria, Frequency or Difficulty Voiding
Musculoskeletal: Reports See HPI
Neurological: Reports See HPI
Physical Exam
Vital Signs
Vital Signs
Temp Pulse Resp BP Pulse Ox
98.6 F 110 16 163/85 98
02/27/24 11:10 02/27/24 14:03 02/27/24 14:03 02/27/24 14:00 02/27/24 14:03
Physical Exam
General: Well Developed, Well Nourished, No Apparent Distress, Comfortable and Conversant
Respiratory: Clear and Non Labored Respirations
Cardiac: S1/S2 and Regular Rhythm
Musculoskeletal: No Clubbing, No Cyanosis and No Edema
Skin: Warm and Dry
Neuro: Awake, Alert, Oriented, AO x 3 and Other (Strength lower extremities (1/5 right, 3/5 left), no sensory defects)
Psych: Calm
Laboratory Results
-
02/27/24 11:46
02/27/24 11:46
Laboratory Results
PT 13.3 Sec (11.4-14.6) 02/27/24 11:46
INR 1.02 02/27/24 11:46
APTT 25.9 Sec (23.4-35.0) 02/27/24 11:46
Data Reviewed
-
CT Scan: Report Reviewed by me and Discussed with Physician
Medical Tests (Nuc Med, Echo, EKG etc): Report Reviewed by me, Discussed with Physician and Discussed with Patient
Lab Data: Labs Reviewed by me, Discussed with Physician and Discussed with Patient
Impression/Plan
-
IMPRESSION:
63-year-old male with past medical history of [id number]-[id number] diabetes presenting to the emergency department with progression of weakness in his bilateral lower extremities. Patient says the weakness is more pronounced on the right side and
it has gotten worse in the 5 days since he was last here.
PLAN:
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
-EMG performed by Dr. Morley in ER, showed findings classic for GBS
-MRI Lumbar ordered in ED
-IRAD consulted- Lumbar Puncture scheduled for the morning
-CSF collection- test for cell count, culture, lyme, myelin basic protein, oligoclonal band, paraneoplastic ab igg
-Neurology Consulted- input appreciated
-Continue Respiratory care as needed
-IV IgG 4gm for 5 days started
Non-Insulin Dependent Diabetes
-discontinued home medications
-Started on Lantus 12 units
-Novolg 4 units
-Sliding Scale as needed
Right Sided Lower extremity pain-
-Pain medication as needed
Hypertension-
-Hold Lisinopril until K+ and Na stabilize
Hyperlipidemia-
-Continue Simvastatin
Code Status: Full Code
DVT Prophylaxis- Lovenox
--- NOTE | 2024-02-27 16:30 | NS.EMG ---
Electromyogram (EMG) Study
EMG/NCS Summary
Nerve conduction study of both lower limbs, the left upper limb, and needle EMG of both lower limbs was completed with the patient on a stretcher in the emergency department of the hospital.
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
Full dictated report and tabular data to follow.
--- NOTE | 2024-02-27 17:46 | PTCARENOTE ---
pt presents from ED via stretcher. pt is AAO*3, Vss, room air. pt denies ay pain at this time. pt states pain worsen at night time. pt oriented to the room. call courtney within the reach. plan of care ongoing.
[2024-02-27 18:23] LABS: Glucose - Point of Care 285 mg/dl (70-99)
[2024-02-27] MEDS: NOVOLOG FLEXPEN-MODERATE RESISTANCE 4 UNITS SC (18:30)
[2024-02-27] MEDS: LOVENOX 40 MG SC (18:31)
[2024-02-27] MEDS: GAMMAGARD 50 IV (20:43)
[2024-02-27 21:25] LABS: Glucose - Point of Care 254 mg/dl (70-99)
[2024-02-27] MEDS: GAMMAGARD 200 IV (21:45)
[2024-02-27] MEDS: ASPIR LOW (ENTERIC COATED) 81 MG PO (21:49)
[2024-02-27] MEDS: LANTUS 0.12 UNITS SC (21:49)
[2024-02-27] MEDS: LIPITOR 10 MG PO (21:50)
[2024-02-27] MEDS: ROXICODONE 10 MG PO (21:53)
[2024-02-28] VITALS (18 sets, daily range): BP systolic 91–162; BP diastolic 72–94
[2024-02-28] MEDS: ROXICODONE 10 MG PO ×2 (01:25→23:47)
--- NOTE | 2024-02-28 07:04 | W.PN.HOSP.TC ---
Addendum entered and electronically signed by Pacheco Redmond MD 02/28/24 13:21:
Presenting with bilateral lower extremity weakness with increase in number of falls. Per ED areflexic. Concerning for GBS therefore neurology consulted. Recommended EMG therefore PM&R please obtain in completed which demonstrated findings
consistent with GBS. MRI lumbar spine obtained which shows some spondylosis with anterolisthesis.
Guillain-Angel� syndrome
-Check COVID flu
-Check Lyme
-Without diarrhea to suspect Campylobacter
-Neurology recommends LP, IR consulted, will need to send fluid analysis with cytology and culture
-Neurology recommends IVIG, ordered
-Continue NIF/VC
-Continue neurochecks
-Start incentive spirometer
Diabetes with uncontrolled hyperglycemia
Check A1c, sliding scale, goal blood glucose 1 40-1 80, carb controlled diet
Hyperkalemia
No indication for temporizing measures at this time. Avoid K sparing agents. Low K diet
Hyponatremia�euvolemic
Encourage p.o. intake and fluid intake
Original Note:
Today's Communication/Plan
-
Patient getting Lumbar puncture today, continue with IV IgG and Insulin.
Assessment / Plan
Assessment / Plan
Assessment:
63-year-old male with past medical history of tlx-sylkjht-oauncezso diabetes presenting to the emergency department with progression of weakness in his bilateral lower extremities. Patient says the weakness is more pronounced on the right side and
it has gotten worse in the 5 days since he was last here
Plan:
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
-EMG performed by Dr. Morley in ER, showed findings classic for GBS
-MRI Lumbar ordered in ED
1. At L5-S1, spondylosis and grade 1 anterolisthesis secondary to bilateral L5 pars interarticularis spondylolysis, similar to that seen on the recent prior lumbar spine radiographs from 02/22/2024.
2. No spinal canal stenosis.
3. Mild bilateral neuroforaminal stenoses, as detailed above.
4. No abnormal postcontrast enhancement.
-IRAD consulted- Lumbar Puncture scheduled today
-CSF collection- test for cell count, culture, lyme, myelin basic protein, oligoclonal band, paraneoplastic ab igg
-Neurology Consulted- input appreciated
-Continue Respiratory care as needed
-IV IgG 4gm for 5 days started
Non-Insulin Dependent Diabetes
-discontinued home medications
-Started on Lantus 12 units
-Novolg 4 units
-Sliding Scale as needed
Right Sided Lower extremity pain-
-MRI Lumbar Spine
1. At L5-S1, spondylosis and grade 1 anterolisthesis secondary to bilateral L5 pars interarticularis spondylolysis, similar to that seen on the recent prior lumbar spine radiographs from 02/22/2024.
2. No spinal canal stenosis.
3. Mild bilateral neuroforaminal stenoses, as detailed above.
4. No abnormal postcontrast enhancement.
-Most likely due to Acute demyelinating polyradiculoneuropathy
-Pain medication as needed
Hypertension-
-Hold Lisinopril until K+ and Na stabilize
Hyperlipidemia-
-Continue Simvastatin
Code Status: Full Code
DVT Prophylaxis- Lovenox
Anticipated Discharge: > 48 hours
Subjective/Interval History
-
Date of Service: February 28, 2024
Patient has been feeling well this morning, has more strength in both lower extremities. Pain was managed last night with medication.
Objective Data
-
Labs:
Laboratory Results
02/28/24
06:44
WBC Pending
Hgb Pending
Hct Pending
Plt Count Pending
Sodium Pending
Potassium Pending
Chloride Pending
Carbon Dioxide Pending
BUN Pending
Creatinine Pending
Glucose Pending
Calcium Pending
Total Bilirubin Pending
AST Pending
ALT Pending
Alkaline Phosphatase Pending
Vital Signs:
Vital Signs
Temp Pulse Resp BP Pulse Ox
97.6 F 83 18 133/88 96
02/28/24 03:17 02/28/24 03:17 02/28/24 03:17 02/28/24 03:17 02/28/24 03:17
I&O
02/27/24 02/28/24 02/29/24
06:59 06:59 06:59
Intake Total 480 / 480
Output Total 1500 / 1500
Balance -1020 / -1020
Review of Systems
-
History Source: Patient
Constitutional: Denies Fever, No Appetite, Fatigue or Sleep Disturbance
Respiratory: Denies Cough, Trouble Breathing or Wheezing
Cardiac: Denies Chest Pain, Diaphoresis, Palpitations or Syncope
Abdomen/GI: Denies Abdominal Pain, Nausea or Vomiting
Genitourinary: Denies Incontinence or Difficulty Voiding
Neuro: Denies Headache, Weakness or Numbness
Physical Exam
-
General: Well Developed, Well Nourished, No Apparent Distress and Comfortable
Respiratory: Clear to Auscultation and Non Labored Respirations
Cardiac: Regular Rhythm and S1/S2
Musculoskeletal: No Clubbing, No Cyanosis and No Edema
Neuro: Awake, Alert, Oriented, AO x 3, No Sensory Deficits and Other (RLE Strength (3/5), LLE Strength (4/5))
Psych: Calm
Data Reviewed
-
MRI: Report Reviewed by me, Discussed with Physician and Discussed with Patient
Medical Tests (Nuc Med, Echo etc): Report Reviewed by me, Discussed with Physician and Discussed with Patient
Labs: Labs Reviewed by me, Discussed with Physician and Discussed with Patient
[2024-02-28 07:58] LABS: % Basophils 0.8 % (0-2); % Eosinophils 3.5 % (0-6); % Immature Granulocytes 1.6 % (0-0.5); % Lymphocytes 18.7 % (20.5-51.1); % Monocytes 14.9 % (1.7-9.3); % Neutrophils 60.5 % (42.2-75.2); Absolute Eosinophils 0.1 10^3/uL (0-0.7); Absolute Immature Granulocytes 0.1 10^3/uL (0-0.05); Absolute Lymphocytes 0.7 10^3/uL (1.2-3.4); Absolute Monocytes 0.6 10^3/uL (0.1-0.6); Absolute Neutrophils 2.3 10^3/uL (1.4-6.5); Hematocrit 37.1 % (39.0-52.0); Hemoglobin 12.5 g/dL (13.0-18.0); Mean Corp Hgb Conc. 33.7 g/dL (33.0-37.0); Mean Corpuscular Hgb 29.1 pg (27.0-31.0); Mean Corpuscular Volume 86.5 fL (80.0-94.0); Nucleated Red Blood Cells % 0 % (-); Platelet Count 138 10^3/uL (130-400); Red Blood Cell Count 4.29 10^6/uL (4.70-6.10); Red Cell Dist. Width 14.6 % (11.5-14.5); White Blood Cell Count 3.8 10^3/uL (4.8-10.8)
[2024-02-28 08:01] LABS: Glucose - Point of Care 324 mg/dl (70-99)
[2024-02-28] MEDS: NOVOLOG FLEXPEN-MODERATE RESISTANCE 4 UNITS SC (08:26)
[2024-02-28] MEDS: THERAGRAN 1 TABLET PO (08:26)
[2024-02-28 08:47] LABS: ALT (SGPT) 17 U/L (0-50); AST (SGOT) 19 U/L (17-59); Albumin 4.1 g/dl (3.5-5.0); Alkaline Phosphatase 65 U/L (38-126); Blood Urea Nitrogen 31 mg/dl (9-20); Calcium 9.2 mg/dl (8.4-10.2); Carbon Dioxide 25 mmol/L (22-30); Chloride 98 mmol/L (98-107); Estimated Creatinine Clearance 77 ml/min; Glucose 319 mg/dl (70-99); Potassium 4.8 mmol/L (3.5-5.1); Sodium 132 mmol/L (135-145); Total Bilirubin 0.8 mg/dl (0.2-1.3); Total Protein 6.9 g/dl (6.3-8.2); eGFR > 60.00
[2024-02-28 12:23] LABS: CSF Clarity Clear; CSF Color Colorless; CSF Tube # 4
[2024-02-28 12:24] LABS: Red Cell Count/CSF 16 mm^3; White Cell Count/CSF 2 mm^3 (0-5)
[2024-02-28 12:30] LABS: Glucose - Point of Care 321 mg/dl (70-99)
[2024-02-28] MEDS: NOVOLOG FLEXPEN-MODERATE RESISTANCE 7 UNITS SC (14:02)
[2024-02-28] MEDS: NOVOLOG FLEXPEN 4 UNITS SC ×2 (14:02→18:37)
[2024-02-28] MEDS: NOVOLOG FLEXPEN-MODERATE RESISTANCE SC (14:06)
--- NOTE | 2024-02-28 14:23 | CM ---
met with patient at bedside.patient lives alone in house with 1-2 robert,his bed and bath is on the first level,he amb I ,is I with his adl.
his pcp is dr namol white and he uses [facility] in [place].there are no vn or rip rehab episodes.
ph:iddm
patient is adm with GBS,being followed by flavio,for ivig.he had emg/ncs,LP,neuro rec ivig,await pt/ot plan:home with hc vs home with op services vs home with no needs..
[2024-02-28 18:36] LABS: Glucose - Point of Care 281 mg/dl (70-99)
[2024-02-28] MEDS: NOVOLOG FLEXPEN-MODERATE RESISTANCE 5 UNITS SC (18:37)
[2024-02-28] MEDS: LOVENOX 40 MG SC (18:37)
--- NOTE | 2024-02-28 18:54 | W.PN.NEURO.1 ---
Today's Communication / Plan
-
continue nif/vc, ivig
follow csf
Neuro Assessment/Plan
Assessment
YESICA DE SOUZA is a 63 year old M who has presented to the hospital with worsening of BLE weakness over several days with areflexia in BLE. EMG was c/w GBS.
Differentials for the patient's presentation include:
1. GBS
2. existing Lspine disease resulting in component of lumbar radiculopathy
MRI Lspine showed:
1. At L5-S1, spondylosis and grade 1 anterolisthesis secondary to bilateral L5 pars interarticularis spondylolysis, similar to that seen on the recent prior lumbar spine radiographs from 02/22/2024.
2. No spinal canal stenosis.
3. Mild bilateral neuroforaminal stenoses, as detailed above.
4. No abnormal postcontrast enhancement.
Plan
Recommendations:
1. reviewed MRI Lspine and EMG results with patient and his family
3. IVIG, today is #2/5
4. NIF/VC BID, LP done today--follow results
5. neurochecks
Discussed patient care with: patient and family
Subjective/Objective
Subjective Data
Date of Service: February 28, 2024
tolerated ivig well
report ble weakness was mildly improved earlier today but now feels back to how he felt in the ED
Objective Data
Vital Signs
Temp Pulse Resp BP Pulse Ox
97.3 F 73 18 149/89 97
02/28/24 15:00 02/28/24 15:00 02/28/24 15:00 02/28/24 15:00 02/28/24 15:00
Lab Results
02/28/24 06:44
02/28/24 06:44
PT 13.3 Sec (11.4-14.6) 02/27/24 11:46
INR 1.02 02/27/24 11:46
APTT 25.9 Sec (23.4-35.0) 02/27/24 11:46
Sodium 132 mmol/L (135-145) L 02/28/24 06:44
Potassium 4.8 mmol/L (3.5-5.1) 02/28/24 06:44
BUN 31 mg/dl (9-20) H 02/28/24 06:44
Glucose 319 mg/dl (70-99) H 02/28/24 06:44
Calcium 9.2 mg/dl (8.4-10.2) 02/28/24 06:44
Patient Allergies
No Known Allergies Allergy (Verified 02/22/24 06:12)
Physical Exam
-
The patient is awake, alert and oriented x 3. He is able to follow commands and answer questions appropriately. There is no aphasia or dysarthria. On cranial nerve assessment, pupils are 3 mm bilateral, round and reactive to light and accommodation.
Visual gupta are full. Extraocular movements are intact. Facial sensations are intact and bilaterally symmetrical, there is no facial asymmetry. Hearing is intact bilaterally to normal conversation volume. Tongue palate and uvula are midline.
Sternocleidomastoid strengths are full bilaterally. Motor strengths are 4-/5 proximally in BLE, weaker in the RLE than the LLE, distally 5-. There is noinvoluntary movement noted. Deep tendon reflexes are 2+ in BUE and absent in BLE. Sensations of
temperature and light touch were diminished in a length dependent fashion to the midshin bilaterally. There was no extinction noted on double simultaneous stimulation. Coordination is intact by finger to nose bilaterally.
[2024-02-28 20:15] LABS: Spinal Fluid Glucose 169 mg/dl (40-70)
[2024-02-28 20:22] LABS: Spinal Fluid Protein 342 mg/dl (12-60)
[2024-02-28] MEDS: GAMMAGARD 50 IV (20:37)
[2024-02-28] MEDS: GAMMAGARD 200 IV (21:23)
[2024-02-28 21:41] LABS: Glucose - Point of Care 219 mg/dl (70-99)
[2024-02-28] MEDS: LIPITOR 10 MG PO (21:44)
[2024-02-28] MEDS: ASPIR LOW (ENTERIC COATED) 81 MG PO (21:44)
[2024-02-28] MEDS: LANTUS 0.12 UNITS SC (21:44)
[2024-02-29] VITALS (12 sets, daily range): BP systolic 114–156; BP diastolic 78–93
[2024-02-29 07:02] LABS: % Basophils 0.8 % (0-2); % Eosinophils 3.6 % (0-6); % Immature Granulocytes 1.7 % (0-0.5); % Neutrophils 54.9 % (42.2-75.2); Absolute Eosinophils 0.1 10^3/uL (0-0.7); Absolute Immature Granulocytes 0.1 10^3/uL (0-0.05); Absolute Lymphocytes 0.8 10^3/uL (1.2-3.4); Absolute Monocytes 0.6 10^3/uL (0.1-0.6); Hemoglobin 12.5 g/dL (13.0-18.0); Mean Corp Hgb Conc. 33.8 g/dL (33.0-37.0); Mean Corpuscular Hgb 29.2 pg (27.0-31.0); Mean Corpuscular Volume 86.4 fL (80.0-94.0); Mean Platelet Volume 10.1 fL (7.4-10.4); Nucleated Red Blood Cells % 0 % (-); Platelet Count 141 10^3/uL (130-400); Red Blood Cell Count 4.28 10^6/uL (4.70-6.10); Red Cell Dist. Width 14.5 % (11.5-14.5); White Blood Cell Count 3.6 10^3/uL (4.8-10.8)
[2024-02-29 07:17] LABS: ALT (SGPT) 18 U/L (0-50); AST (SGOT) 19 U/L (17-59); Alkaline Phosphatase 73 U/L (38-126); Blood Urea Nitrogen 28 mg/dl (9-20); Calcium 9.2 mg/dl (8.4-10.2); Carbon Dioxide 24 mmol/L (22-30); Chloride 100 mmol/L (98-107); Estimated Creatinine Clearance 77 ml/min; Glucose 268 mg/dl (70-99); Potassium 4.6 mmol/L (3.5-5.1); Sodium 133 mmol/L (135-145); Total Bilirubin 0.8 mg/dl (0.2-1.3); Total Protein 7.4 g/dl (6.3-8.2); eGFR > 60.00
--- NOTE | 2024-02-29 07:21 | W.PN.HOSP.TC ---
Addendum entered and electronically signed by Pacheco Redmond MD 02/29/24 12:36:
Guillain-Angel� syndrome
-Check COVID flu
-Check Lyme
-Without diarrhea to suspect Campylobacter
-LP consistent with GBS
-Neurology recommends IVIG, ordered
-Continue NIF/VC
-Continue neurochecks
-Start incentive spirometer
Diabetes with uncontrolled hyperglycemia
Check A1c, sliding scale, goal blood glucose 1 40-1 80, carb controlled diet
Hyperkalemia
No indication for temporizing measures at this time. Avoid K sparing agents. Low K diet
Hyponatremia�euvolemic
Encourage p.o. intake and fluid intake
Original Note:
Today's Communication/Plan
-
Continue with current treatment, continue monitoring blood glucose levels and stress importance of managing glucose levels.
Assessment / Plan
Assessment / Plan
Assessment:
63-year-old male with past medical history of pkn-qtadeit-naosfkqto diabetes presenting to the emergency department with progression of weakness in his bilateral lower extremities. Patient's lower extremity strength has gradually been improving
since treatment with IV IgG. Reports no symptoms after lumbar puncture. Continuing with current treatment.
Plan:
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
-EMG performed by Dr. Morley in ER, showed findings classic for GBS
-MRI Lumbar ordered in ED
1. At L5-S1, spondylosis and grade 1 anterolisthesis secondary to bilateral L5 pars interarticularis spondylolysis, similar to that seen on the recent prior lumbar spine radiographs from 02/22/2024.
2. No spinal canal stenosis.
3. Mild bilateral neuroforaminal stenoses, as detailed above.
4. No abnormal postcontrast enhancement.
-IRAD consulted- Lumbar Puncture performed yesterday
-CSF collection- test for cell count, culture, lyme, myelin basic protein, oligoclonal band, paraneoplastic ab igg
-CSF Glucose 169 H, CSF Total Protein 342 H, RBC 16, WBC 2, other tests pending
-Neurology Consulted- input appreciated
-Continue Respiratory care as needed
-Continue IV IgG 4gm
Non-Insulin Dependent Diabetes
-discontinued home medications
-Started on Lantus 12 units
-Novolg 4 units
-Sliding Scale as needed
Right Sided Lower extremity pain-
-MRI Lumbar Spine
1. At L5-S1, spondylosis and grade 1 anterolisthesis secondary to bilateral L5 pars interarticularis spondylolysis, similar to that seen on the recent prior lumbar spine radiographs from 02/22/2024.
2. No spinal canal stenosis.
3. Mild bilateral neuroforaminal stenoses, as detailed above.
4. No abnormal postcontrast enhancement.
-Most likely due to Acute demyelinating polyradiculoneuropathy
-Pain medication as needed
Hypertension-
-Hold Lisinopril until K+ and Na stabilize
Hyperlipidemia-
-Continue Simvastatin
Code Status: Full Code
DVT Prophylaxis- Lovenox
Anticipated Discharge: > 48 hours
Subjective/Interval History
-
Date of Service: February 29, 2024
Patient has been feeling well, says his legs have been feeling stronger. Gradual improvement in strength. No adverse events over night, pain has been managed. No complaints after lumbar puncture.
Objective Data
-
Labs:
Laboratory Results
02/29/24
06:22
WBC 3.6 L
Hgb 12.5 L
Hct 37.0 L
Plt Count 141
Sodium 133 L
Potassium 4.6
Chloride 100
Carbon Dioxide 24
BUN 28 H
Creatinine 1.1
Glucose 268 H
Calcium 9.2
Total Bilirubin 0.8
AST 19
ALT 18
Alkaline Phosphatase 73
Vital Signs:
Vital Signs
Temp Pulse Resp BP Pulse Ox
97.8 F 87 16 140/89 96
02/29/24 03:35 02/29/24 03:35 02/29/24 03:35 02/29/24 03:35 02/29/24 03:35
I&O
02/28/24 02/29/24 03/01/24
06:59 06:59 06:59
Intake Total 480 / 480 1200 / 1200
Output Total 1500 / 1500 450 / 450 775 / 775
Balance -1020 / -1020 750 / 750 -775 / -775
Review of Systems
-
History Source: Patient
Constitutional: Denies Fever, Fatigue, Night Sweats or Chills
Respiratory: Denies Cough or Trouble Breathing
Cardiac: Denies Chest Pain, Diaphoresis, Palpitations or Syncope
Abdomen/GI: Denies Abdominal Pain, Nausea or Vomiting
Genitourinary: Denies Incontinence
Musculoskeletal: Denies Muscle Pain (mainly RLE)
Neuro: Reports Weakness (bilateral lower extremities)
Physical Exam
-
General: Well Developed, Well Nourished, No Apparent Distress, Comfortable and Conversant
Respiratory: Clear to Auscultation and Non Labored Respirations
Cardiac: Regular Rhythm and S1/S2
GI: Soft and Nontender
Musculoskeletal: No Clubbing, No Cyanosis and No Edema
Neuro: Awake, Alert, Oriented, AO x 3 and Other (RLE Strength (3/5), LLE Strength (4/5) No Sensory Deficits)
Psych: Calm
[2024-02-29 07:48] LABS: Glucose - Point of Care 264 mg/dl (70-99)
[2024-02-29] MEDS: THERAGRAN 1 TABLET PO (08:19)
[2024-02-29] MEDS: NOVOLOG FLEXPEN-MODERATE RESISTANCE 5 UNITS SC (08:19)
[2024-02-29] MEDS: NOVOLOG FLEXPEN 4 UNITS SC ×3 (08:20→17:48)
--- NOTE | 2024-02-29 08:34 | VATNOTE ---
During routine assessment, IVs flushed. Leaking noted at IV site in pt's R antecubital fossa. Removed. Blood spurting from site. Pressure held for 5 minutes, bleeding stopped before applying a new dressing to site. Asked pt to please leave gauze in
place over site for 24 hours.
--- NOTE | 2024-02-29 11:33 | W.PN.NEURO.1 ---
Today's Communication / Plan
-
continue ivig
vc/nif bid
neurochecks
Neuro Assessment/Plan
Assessment
YESICA DE SOUZA is a 63 year old M who has presented to the hospital with worsening of BLE weakness over several days with areflexia in BLE. EMG was c/w GBS. CSF c/w albuminocytologic dissociation
Differentials for the patient's presentation include:
1. GBS
2. existing Lspine disease resulting in component of lumbar radiculopathy
MRI Lspine showed:
1. At L5-S1, spondylosis and grade 1 anterolisthesis secondary to bilateral L5 pars interarticularis spondylolysis, similar to that seen on the recent prior lumbar spine radiographs from 02/22/2024.
2. No spinal canal stenosis.
3. Mild bilateral neuroforaminal stenoses, as detailed above.
4. No abnormal postcontrast enhancement.
Plan
Recommendations:
- IVIG, today is #3/5
-NIF/VC BID, LP done --follow results
-neurochecks
-f/u CSF, bloodwork
Discussed patient care with: patient
Subjective/Objective
Subjective Data
Date of Service: February 29, 2024
ble improving
Objective Data
Vital Signs
Temp Pulse Resp BP Pulse Ox
97.9 F 87 16 156/89 98
02/29/24 11:00 02/29/24 11:00 02/29/24 11:00 02/29/24 11:00 02/29/24 11:00
Lab Results
02/29/24 06:22
02/29/24 06:22
PT 13.3 Sec (11.4-14.6) 02/27/24 11:46
INR 1.02 02/27/24 11:46
APTT 25.9 Sec (23.4-35.0) 02/27/24 11:46
Sodium 133 mmol/L (135-145) L 02/29/24 06:22
Potassium 4.6 mmol/L (3.5-5.1) 02/29/24 06:22
BUN 28 mg/dl (9-20) H 02/29/24 06:22
Glucose 268 mg/dl (70-99) H 02/29/24 06:22
Calcium 9.2 mg/dl (8.4-10.2) 02/29/24 06:22
Patient Allergies
No Known Allergies Allergy (Verified 02/22/24 06:12)
Physical Exam
-
The patient is awake, alert and oriented x 3. He is able to follow commands and answer questions appropriately. There is no aphasia or dysarthria. On cranial nerve assessment, pupils are 3 mm bilateral, round and reactive to light and accommodation.
Visual gupta are full. Extraocular movements are intact. Facial sensations are intact and bilaterally symmetrical, there is no facial asymmetry. Hearing is intact bilaterally to normal conversation volume. Tongue palate and uvula are midline.
Sternocleidomastoid strengths are full bilaterally. Motor strengths are 4-/5 proximally in BLE, weaker in the RLE than the LLE, distally 5-. There is no involuntary movement noted. Deep tendon reflexes are 2+ in BUE and absent in BLE. Sensations of
temperature and light touch were diminished in a length dependent fashion to the midshin bilaterally. There was no extinction noted on double simultaneous stimulation. Coordination is intact by finger to nose bilaterally.
[2024-02-29 11:51] LABS: Glucose - Point of Care 218 mg/dl (70-99)
[2024-02-29] MEDS: NOVOLOG FLEXPEN-MODERATE RESISTANCE 3 UNITS SC (12:10)
--- NOTE | 2024-02-29 16:18 | PTCARENOTE ---
Pt AAO x3, RICH; able to lift BLE from bed. OOB to chair with assist x1/walker, kee well, ambulates slowly. Pt c/o 'numbness' in toes; tactile sensation to BLE (+). VSS. Telemetry:NSR. On room air- pulse ox 98%. Abd large, soft, kee PO well.
Voids clear lt dee urine in urinal without difficulty Resting in bed at present, no c/o. Will continue to monitor.
[2024-02-29 17:03] LABS: Glucose - Point of Care 321 mg/dl (70-99)
[2024-02-29] MEDS: LOVENOX 40 MG SC (17:47)
[2024-02-29] MEDS: NOVOLOG FLEXPEN-MODERATE RESISTANCE 7 UNITS SC (17:48)
[2024-02-29] MEDS: GAMMAGARD 50 IV (20:53)
[2024-02-29 21:47] LABS: Glucose - Point of Care 273 mg/dl (70-99)
[2024-02-29] MEDS: GAMMAGARD 200 IV (22:16)
[2024-02-29] MEDS: ASPIR LOW (ENTERIC COATED) 81 MG PO (22:16)
[2024-02-29] MEDS: LANTUS 0.12 UNITS SC (22:27)
[2024-02-29] MEDS: LIPITOR 10 MG PO (22:27)
[2024-02-29] MEDS: ROXICODONE 10 MG PO (22:28)
[2024-03-01] VITALS (12 sets, daily range): BP systolic 128–167; BP diastolic 79–99; PULSE 72; O2SAT 98
[2024-03-01 07:23] LABS: Glucose - Point of Care 272 mg/dl (70-99)
--- NOTE | 2024-03-01 07:35 | W.PN.HOSP.TC ---
Addendum entered and electronically signed by Milly Pardo MD 03/01/24 13:39:
# Guillain-Angel� syndrome
Check COVID/Flu
Follow Lyme serology
Without diarrhea to suspect Campylobacter
LP consistent with GBS
started IVIG
Monitor NIF/VC
MRI lumbar spine unrevealing
Check MRI cervical spine per Neuro
Neuro on board
PT OT eval with PMR CS
# NIDDM
A1c 8.7%
Cont ISS coverage
resume [employer] oral hypoglycemic after discharge
# Hyponatremia, euvolemic
Sodium level 131 today
Dispo: PT OT eval with PMR CS
Original Note:
Today's Communication/Plan
-
Patient to be seen by PT/OT, continue current medications. Continue to monitor lower extremity muscle strength
Assessment / Plan
Assessment / Plan
Assessment:
63-year-old male with past medical history of [id number]-[id number] diabetes presenting to the emergency department with progression of weakness in his bilateral lower extremities. Patient's lower extremity strength has gradually been improving
since treatment with IV IgG. Reports no symptoms after lumbar puncture. Continuing with current treatment.
Plan:
Acute demyelinating polyradiculoneuropathy (GBS)
-EMG performed by Dr. Morley in ER, showed findings classic for GBS
-MRI Lumbar ordered in ED
1. At L5-S1, spondylosis and grade 1 anterolisthesis secondary to bilateral L5 pars interarticularis spondylolysis, similar to that seen on the recent prior lumbar spine radiographs from 02/22/2024.
2. No spinal canal stenosis.
3. Mild bilateral neuroforaminal stenoses, as detailed above.
4. No abnormal postcontrast enhancement.
-IRAD consulted- Lumbar Puncture performed
-CSF collection- test for cell count, culture, lyme, myelin basic protein, oligoclonal band, paraneoplastic ab igg
-CSF Glucose 169 H, CSF Total Protein 342 H, RBC 16, WBC 2, other tests pending
-Neurology Consulted- input appreciated
-Continue IV IgG 4gm (Day 4 of 5)
-PT/OT evaluation today
-Neuro input appreciated
Non-Insulin Dependent Diabetes
-discontinued home medications
-Started on Lantus 12 units
-Novolg 4 units
-Sliding Scale as needed
Right Sided Lower extremity pain-
-MRI Lumbar Spine
1. At L5-S1, spondylosis and grade 1 anterolisthesis secondary to bilateral L5 pars interarticularis spondylolysis, similar to that seen on the recent prior lumbar spine radiographs from 02/22/2024.
2. No spinal canal stenosis.
3. Mild bilateral neuroforaminal stenoses, as detailed above.
4. No abnormal postcontrast enhancement.
-Most likely due to Acute demyelinating polyradiculoneuropathy
-Pain medication as needed
Hypertension-
-Hold Lisinopril until K+ and Na stabilize
Hyperlipidemia-
-Continue Simvastatin
Code Status: Full Code
DVT Prophylaxis- Lovenox
Anticipated Discharge: 24 - 48 hours
Subjective/Interval History
-
Date of Service: March 01, 2024
Patient has been feeling well, strength has been improving in his lower extremities but it's very gradual. Has been noticing her feet are a bit more cold. No adverse events overnight.
Objective Data
-
Labs:
Laboratory Results
03/01/24
06:55
WBC Pending
Hgb Pending
Hct Pending
Plt Count Pending
Sodium Pending
Potassium Pending
Chloride Pending
Carbon Dioxide Pending
BUN Pending
Creatinine Pending
Glucose Pending
Calcium Pending
Total Bilirubin Pending
AST Pending
ALT Pending
Alkaline Phosphatase Pending
Vital Signs:
Vital Signs
Temp Pulse Resp BP Pulse Ox
97.3 F 76 18 138/92 97
03/01/24 03:43 03/01/24 03:43 03/01/24 03:43 03/01/24 03:43 03/01/24 03:43
I&O
02/29/24 03/01/24 03/02/24
06:59 06:59 06:59
Intake Total 1200 / 1200 1020 / 1020
Output Total 450 / 450 2750 / 2750
Balance 750 / 750 -1730 / -1730
Review of Systems
-
History Source: Patient
Constitutional: Denies Fever, No Appetite, Fatigue or Sleep Disturbance
Respiratory: Denies Cough or Trouble Breathing
Cardiac: Denies Chest Pain, Diaphoresis or Palpitations
Abdomen/GI: Denies Abdominal Pain, Nausea or Vomiting
Musculoskeletal: Reports Muscle Pain; Denies Edema
Neuro: Reports Weakness; Denies Dizzy or Headache
Physical Exam
-
General: Well Developed, Well Nourished, No Apparent Distress and Comfortable
Respiratory: Clear to Auscultation and Non Labored Respirations
Cardiac: Regular Rhythm and S1/S2
Musculoskeletal: No Clubbing, No Cyanosis and No Edema
Skin: Warm and Dry
Neuro: Awake, Alert, Oriented, AO x 3 and Other (RLE Strength (3/5), LLE Strength (4/5), pedal pulses in tact bilaterally, sensation intact)
Psych: Calm
Data Reviewed
-
Labs: Labs Reviewed by me, Discussed with Physician and Discussed with Patient
[2024-03-01 07:55] LABS: % Eosinophils 3.6 % (0-6); % Immature Granulocytes 1.6 % (0-0.5); % Lymphocytes 22.5 % (20.5-51.1); % Monocytes 18.6 % (1.7-9.3); % Neutrophils 52.7 % (42.2-75.2); Absolute Eosinophils 0.1 10^3/uL (0-0.7); Absolute Immature Granulocytes 0.1 10^3/uL (0-0.05); Absolute Lymphocytes 0.7 10^3/uL (1.2-3.4); Absolute Monocytes 0.6 10^3/uL (0.1-0.6); Absolute Neutrophils 1.6 10^3/uL (1.4-6.5); Hematocrit 39.3 % (39.0-52.0); Hemoglobin 13.3 g/dL (13.0-18.0); Mean Corp Hgb Conc. 33.8 g/dL (33.0-37.0); Mean Corpuscular Hgb 29.2 pg (27.0-31.0); Mean Corpuscular Volume 86.4 fL (80.0-94.0); Mean Platelet Volume 10.3 fL (7.4-10.4); Nucleated Red Blood Cells % 0 % (-); Platelet Count 128 10^3/uL (130-400); Red Blood Cell Count 4.55 10^6/uL (4.70-6.10); Red Cell Dist. Width 14.4 % (11.5-14.5); White Blood Cell Count 3.1 10^3/uL (4.8-10.8)
[2024-03-01] MEDS: THERAGRAN 1 TABLET PO (08:42)
[2024-03-01] MEDS: NOVOLOG FLEXPEN-MODERATE RESISTANCE 5 UNITS SC ×3 (08:43→18:30)
[2024-03-01] MEDS: NOVOLOG FLEXPEN 4 UNITS SC ×3 (08:43→18:30)
[2024-03-01 09:02] LABS: ALT (SGPT) 19 U/L (0-50); AST (SGOT) 21 U/L (17-59); Albumin 4.1 g/dl (3.5-5.0); Alkaline Phosphatase 67 U/L (38-126); Blood Urea Nitrogen 36 mg/dl (9-20); Calcium 8.8 mg/dl (8.4-10.2); Carbon Dioxide 23 mmol/L (22-30); Chloride 98 mmol/L (98-107); Estimated Creatinine Clearance 70 ml/min; Glucose 295 mg/dl (70-99); Potassium 5.1 mmol/L (3.5-5.1); Sodium 131 mmol/L (135-145); Total Bilirubin 0.9 mg/dl (0.2-1.3); Total Protein 7.4 g/dl (6.3-8.2); eGFR > 60.00
--- NOTE | 2024-03-01 10:16 | CM ---
Patient seen bedside.
PT/OT evals (P).
CM will follow for d/c needs.
Patient aware of CM availability should needs arise.
Plan: home with possible Home care needs.
--- NOTE | 2024-03-01 10:42 | W.PN.NEURO.1 ---
Today's Communication / Plan
-
Neurology attending note ::
63-year-old male history of Guillain-Angel� syndrome doing very well on IVIG with near complete recovery
Continue IVIG. Day 5
Consult Rehab
Should he have recurrent weakness he will need a second infusion of IVIG 3 to 4 weeks
Neuro Assessment/Plan
Assessment
YESICA DE SOUZA is a 63 year old M who has presented to the hospital with leg weakness since Feb 11 week with areflexia. EMG was c/w GBS. CSF c/w albuminocytologic dissociation
Differentials for the patient's presentation include:
1. GBS
2. Pre existing L Spine disease with lumbar radiculopathy(R)
MRI L Spine showed:
1. At L5-S1, spondylosis and grade 1 anterolisthesis secondary to bilateral L5 pars interarticularis spondylolysis, similar to that seen on the recent prior lumbar spine radiographs from 02/22/2024.
2. No spinal canal stenosis.
3. Mild bilateral neuroforaminal stenoses, as detailed above.
4. No abnormal postcontrast enhancement.
Plan
Recommendations:
- Continue IVIG, today is #4/5
- NIF/VC BID, LP done --follow results
- Neurochecks
- F/u CSF, bloodwork
- Rehab consult
Discussed patient care with: patient and hospitalist
Subjective/Objective
Subjective Data
Date of Service: March 01, 2024
Pat feels stronger. Able to stand and walk with walker...
Objective Data
Vital Signs
Temp Pulse Resp BP Pulse Ox
36.4 C 78 18 149/94 97
03/01/24 08:15 03/01/24 08:15 03/01/24 08:15 03/01/24 08:15 03/01/24 08:15
Lab Results
03/01/24 06:55
08/19/24 06:55
PT 13.3 Sec (11.4-14.6) 02/27/24 11:46
INR 1.02 02/27/24 11:46
APTT 25.9 Sec (23.4-35.0) 02/27/24 11:46
Sodium 131 mmol/L (135-145) L 03/01/24 06:55
Potassium 5.1 mmol/L (3.5-5.1) 03/01/24 06:55
BUN 36 mg/dl (9-20) H 03/01/24 06:55
Glucose 295 mg/dl (70-99) H 03/01/24 06:55
Calcium 8.8 mg/dl (8.4-10.2) 03/01/24 06:55
Patient Allergies
No Known Allergies Allergy (Verified 02/22/24 06:12)
[2024-03-01 11:56] LABS: Glucose - Point of Care 254 mg/dl (70-99)
--- NOTE | 2024-03-01 12:48 | PN.DE ---
Diabetes Education
- -
03/01/2024: Diabetes Education Consult
Met with Mr. Henry and his Son at bedside for general Diabetes Education.
Pt has hx of T2DM, states he sees his PCP for regular diabetes care and that he has been dealing with Diabetes for a very long time. States he was doing well managing his blood sugars with exercise and eating healthy until about a month ago when he
developed weakness and pains in both legs which forced him to stop exercising and working. He states he does not eat too much carbs and that he typically watches what he eats. Discussed his current A1C of 8.7% and average blood sugar of 180-200.
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
pt reports that he monitors his blood sugars once a day, fasting which is usually 150-180.
Discussed testing pattern with BID schedule and expected results. Discussed and reviewed importance of reducing CHO intake, being active and checking BS to assess food/medication effect on his BS. Encourage physical activity and benefit of losing
weight. States he works in [employer] and is usually active working outside until this recent weakness and pain in his leg.
Discussed and offered OP DSME classes, but pt declined stating that he reads a lot about diabetes on a daily basis.
Updates given to Hospitalist Dr. Pardo and Pt's nurse.
[2024-03-01 18:20] LABS: Glucose - Point of Care 248 mg/dl (70-99)
[2024-03-01] MEDS: LOVENOX 40 MG SC (18:30)
[2024-03-01 19:44] LABS: Albumin Index 48.2 ratio (0.0-9.0); Albumin, CSF 173 mg/dL (0-35); Albumin, Serum 3586 mg/dL (3500-5200); CSF IgG Synthesis Rate <0.0 mg/d (<=8.0); CSF IgG/Albumin Ratio 0.14 ratio (0.09-0.25); CSF Oligoclonal Bands Negative (Negative); CSF Oligoclonal Bands Number 1 Bands (0-1); IgG 1272 mg/dL (768-1632); IgG, CSF 24.4 mg/dL (0.0-6.0)
[2024-03-01 20:16] LABS: COVID-19 Antigen Negative (Negative)
[2024-03-01] MEDS: GAMMAGARD 50 IV (21:00)
[2024-03-01 21:56] LABS: Glucose - Point of Care 203 mg/dl (70-99)
[2024-03-01] MEDS: GAMMAGARD 200 IV (22:03)
[2024-03-01] MEDS: LANTUS 0.12 UNITS SC (22:06)
[2024-03-01] MEDS: LIPITOR 10 MG PO (22:06)
[2024-03-01] MEDS: ASPIR LOW (ENTERIC COATED) 81 MG PO (22:06)
[2024-03-01] MEDS: ROXICODONE 10 MG PO (23:28)
[2024-03-02] VITALS (11 sets, daily range): BP systolic 120–158; BP diastolic 56–94; PULSE 87
[2024-03-02 07:20] LABS: Glucose - Point of Care 271 mg/dl (70-99)
--- NOTE | 2024-03-02 07:31 | W.PN.HOSP.TC ---
Addendum entered and electronically signed by Milly Pardo MD 03/02/24 11:02:
A/P:
# Guillain-Angel� syndrome
COVID/Flu negative
Follow Lyme serology
Without diarrhea to suspect Campylobacter
LP consistent with GBS
started IVIG x 5 days
Monitor NIF/VC
MRI lumbar spine, MRI cervical spine both unrevealing (MR cervical spine noted small multilevel disc herniations in the cervical spine causing mild spinal cord compression at C3/C4- this can be eval with neurosurgery outpt)
Neuro on board
PT OT, PMR eval
# NIDDM
A1c 8.7%
Cont ISS coverage
resume [facility] oral hypoglycemic after discharge
# Hyponatremia, euvolemic
Sodium level 133 today
Dispo: PT OT, PMR eval
Original Note:
Today's Communication/Plan
-
Patient to continue on current medication. Discharge to rehab once available
Assessment / Plan
Assessment / Plan
Assessment:
63-year-old male with past medical history of eeh-splvzsn-ebtadatxk diabetes presenting to the emergency department with progression of weakness in his bilateral lower extremities. Patient's lower extremity strength has gradually been improving
since treatment with IV IgG. Continuing with current treatment, awaiting word from Rehab facility.
Plan:
Acute demyelinating polyradiculoneuropathy (GBS)
-EMG performed by Dr. Morley in ER, showed findings classic for GBS
-MRI Lumbar ordered in ED
1. At L5-S1, spondylosis and grade 1 anterolisthesis secondary to bilateral L5 pars interarticularis spondylolysis, similar to that seen on the recent prior lumbar spine radiographs from 02/22/2024.
2. No spinal canal stenosis.
3. Mild bilateral neuroforaminal stenoses, as detailed above.
4. No abnormal postcontrast enhancement.
-IRAD consulted- Lumbar Puncture performed
-CSF collection- test for cell count, culture, lyme, myelin basic protein, oligoclonal band, paraneoplastic ab igg
-CSF Glucose 169 H, CSF Total Protein 342 H, RBC 16, WBC 2, other tests pending
-Neurology Consulted- input appreciated
-PT/OT evaluation- Acute Rehab Recommended (Skilled therapy 3+ hours a day)
-Cervical Spine MRI ordered-
1. Small multilevel disc herniations in the cervical spine causing mild spinal cord compression at C3/C4.
2. Moderate discogenic degenerative disease at C5/C6 and C6/C7. Severe left and moderate right neural foraminal narrowing at C5/C6 and C6/C7.
3. Mild kyphosis at C3/C4
-Continue IV IgG 4gm (Day 5 of 5)
-COVID- Neg, Lyme Pending
-Discharge to Acute Rehab Facility vs Home vs SNF according to Neuro input and [facility] availability
Non-Insulin Dependent Diabetes
-discontinued home medications
-Started on Lantus 12 units
-Novolg 4 units
-Sliding Scale as needed
-Cont previous oral anti hyperglycemic agents after discharge
Right Sided Lower extremity pain-
-MRI Lumbar Spine
1. At L5-S1, spondylosis and grade 1 anterolisthesis secondary to bilateral L5 pars interarticularis spondylolysis, similar to that seen on the recent prior lumbar spine radiographs from 02/22/2024.
2. No spinal canal stenosis.
3. Mild bilateral neuroforaminal stenoses, as detailed above.
4. No abnormal postcontrast enhancement.
-Most likely due to Acute demyelinating polyradiculoneuropathy
-Pain medication as needed
Hypertension-
-Hold Lisinopril until K+ and Na stabilize
Hyperlipidemia-
-Continue Simvastatin
Code Status: Full Code
DVT Prophylaxis- Lovenox
Anticipated Discharge: Today
Subjective/Interval History
-
Date of Service: March 02, 2024
Patient has been feeling well, getting stronger and able to ambulate by himself.
Objective Data
-
Labs:
Laboratory Results
03/02/24
06:00
WBC Pending
Hgb Pending
Hct Pending
Plt Count Pending
Sodium Pending
Potassium Pending
Chloride Pending
Carbon Dioxide Pending
BUN Pending
Creatinine Pending
Glucose Pending
Calcium Pending
Total Bilirubin Pending
AST Pending
ALT Pending
Alkaline Phosphatase Pending
Vital Signs:
Vital Signs
Temp Pulse Resp BP Pulse Ox
98.1 F 80 16 132/87 95
03/02/24 03:45 03/02/24 03:45 03/02/24 03:45 03/02/24 03:45 03/02/24 03:45
I&O
03/01/24 03/02/24 03/03/24
06:59 06:59 06:59
Intake Total 1020 / 1020 540 / 540
Output Total 2750 / 2750 1000 / 1000
Balance -1730 / -1730 -460 / -460
Review of Systems
-
History Source: Patient
Constitutional: Denies Fever, No Appetite or Fatigue
Respiratory: Denies Cough, Trouble Breathing or Wheezing
Cardiac: Denies Chest Pain, Diaphoresis or Palpitations
Abdomen/GI: Denies Abdominal Pain, Nausea or Vomiting
Musculoskeletal: Reports Joint Pain
Physical Exam
-
General: Well Developed, Well Nourished, No Apparent Distress and Comfortable
Respiratory: Clear to Auscultation and Non Labored Respirations
Cardiac: Regular Rhythm and S1/S2
Musculoskeletal: No Clubbing, No Cyanosis, No Edema and Other
Skin: Warm and Dry
Neuro: Awake, Alert, Oriented, AO x 3 and Other (RLE Strength (4/5), LLE Strength (4/5) Sensory intact)
Psych: Calm
Data Reviewed
-
MRI: Report Reviewed by me, Discussed with Physician and Discussed with Patient
Labs: Labs Reviewed by me, Discussed with Physician and Discussed with Patient
[2024-03-02] MEDS: NOVOLOG FLEXPEN-MODERATE RESISTANCE 5 UNITS SC (08:17)
[2024-03-02] MEDS: THERAGRAN 1 TABLET PO (08:17)
[2024-03-02] MEDS: NOVOLOG FLEXPEN 4 UNITS SC ×3 (08:17→18:08)
[2024-03-02 08:51] LABS: % Basophils 1.2 % (0-2); % Eosinophils 2.7 % (0-6); % Immature Granulocytes 1.5 % (0-0.5); % Lymphocytes 17.3 % (20.5-51.1); % Monocytes 15.3 % (1.7-9.3); Absolute Basophils 0.1 10^3/uL (0-0.2); Absolute Eosinophils 0.1 10^3/uL (0-0.7); Absolute Immature Granulocytes 0.1 10^3/uL (0-0.05); Absolute Lymphocytes 0.7 10^3/uL (1.2-3.4); Absolute Monocytes 0.6 10^3/uL (0.1-0.6); Absolute Neutrophils 2.5 10^3/uL (1.4-6.5); Hematocrit 40.6 % (39.0-52.0); Hemoglobin 13.6 g/dL (13.0-18.0); Mean Corp Hgb Conc. 33.5 g/dL (33.0-37.0); Mean Corpuscular Hgb 29.4 pg (27.0-31.0); Mean Corpuscular Volume 87.7 fL (80.0-94.0); Mean Platelet Volume 10.8 fL (7.4-10.4); Nucleated Red Blood Cells % 0 % (-); Platelet Count 159 10^3/uL (130-400); Red Blood Cell Count 4.63 10^6/uL (4.70-6.10); Red Cell Dist. Width 14.6 % (11.5-14.5)
[2024-03-02 09:09] LABS: ALT (SGPT) 33 U/L (0-50); AST (SGOT) 43 U/L (17-59); Albumin 4.5 g/dl (3.5-5.0); Alkaline Phosphatase 71 U/L (38-126); Blood Urea Nitrogen 35 mg/dl (9-20); Calcium 9.3 mg/dl (8.4-10.2); Carbon Dioxide 23 mmol/L (22-30); Chloride 95 mmol/L (98-107); Estimated Creatinine Clearance 77 ml/min; Glucose 353 mg/dl (70-99); Sodium 130 mmol/L (135-145); Total Bilirubin 1.1 mg/dl (0.2-1.3); Total Protein 8.6 g/dl (6.3-8.2); eGFR > 60.00
[2024-03-02 09:25] LABS: Potassium 4.8 mmol/L (3.5-5.1)
--- NOTE | 2024-03-02 10:44 | CON.MD ---
Consultation - Medical
-
Referring Provider:�Dr. Aaron Velazquez
Chief Complaint:�Guillain-Angel� syndrome
�
History of Present Illness:�63-year-old male with PMH (as below) presented to [facility] on 02/27/[facility]24 with lower extremity weakness and increased number of falls with areflexia. Also with paresthesias of the right leg. Concern for
Guillain-Angel� syndrome and EMG completed supporting the diagnosis. Started on IVIG with monitoring of neurostatus NIF/VC. MRI lumbar spine with L5-S1 spondylosis and grade 1 anterolisthesis secondary to bilateral L5 pars ventricularis
spondylolysis similar to 02/22/2024 without spinal canal stenosis and mild bilateral neuroforaminal stenosis. LP performed. MRI of the cervical spine noting mild spinal cord compression C3/C4 and moderate disc degenerative disc disease C5/C6 and
C6/C7 with severe left and moderate right neuroforaminal narrowing at C5/C6 and C6/C7 with mild C3/C4 kyphosis.
�
Past Medical History:�NIDDM, melanoma
Procedure History:�Melanoma surgery
Family History:�None pertinent
�
Social History:�
Functional Level Premorbidly:�Independent with all activities�
Functional Level Currently:�Min assist for transfers, min assist ambulating 40 feet x 1 with rolling walker. Min assist grooming and toileting. Max assist lower extremity self-care.
�
Tobacco:�Denies�
Alcohol:�Denies�
Drug use:�Denies�
�
Lives with:�Alone
24-hour assistance available:�No
Number of floors:�1
# steps to enter:�2
Driving:�Yes
Occupation:�Self-employed piedad
�
�
Allergies:�
Allergy/AdvReac Type Severity Reaction Status Date / Time
No Known Allergies Allergy Verified 02/22/24 06:12
�
Review of Systems:�
Constitutional: (x) abNormal _fatigue
Eye: (x) Normal _
Ear/Nose/Throat: (x) Normal _
Respiratory: (x) Normal _
Cardiovascular: (x) Normal _
Gastrointestinal: (x) Normal _
Genitourinary: (x) Normal _
Musculoskeletal: (x) abNormal _weakness
Integumentary: (x) Normal _
Neurologic: (x) abNormal _weakness, sensation of pressure/numbness in legs before bed.
Psychiatric: (x) Normal _
Endocrine: (x) Normal _
Hematologic/Lymphatic: (x) Normal _
Allergic/Immunologic: (x) Normal _
�
Medications:�
Active Current Visit Medication List
Category Date Time Status
Aspirin Low Dose EC [Aspir Low (Enteric Coated)] Med 02/27/24 22:00 Active
81 mg PO HS
Atorvastatin [Lipitor] Med 02/27/24 22:00 Active
10 mg PO HS
Dextrose 50%-Water [Dextrose 50% Syringe] Med 02/27/24 17:23 Active
12.5 grams IV [id number] PRN
Enoxaparin Sodium [Lovenox] Med 02/27/24 18:00 Active
40 mg SC QPM
Flush (0.9% Sodium Chloride) [Flush (Nss)] Med 02/27/24 19:00 Active
See Dose Instructions IV PER PROTOCOL
Glucagon [GlucaGen] Med 02/27/24 17:23 Active
1 mg IM PRN PRN
Ibuprofen [Motrin] Med 02/27/24 18:17 Active
600 mg PO Q6HPRN PRN
Immune Globulin 20 Grams/200Ml [Gammagard] Med 02/27/24 21:00 Active
20 gram in 200 ml IV Q24H
Immune Globulin 5 Grams/50 ml [Gammagard] Med 02/27/24 20:00 Active
5 gram in 50 ml IV Q24H
Insulin Aspart Corrective Mod [Novolog Flexpen-Moderate Med 02/28/24 14:00 Active
Resistance]
See Protocol SC AC
Insulin Aspart Pen [Novolog Flexpen] Med 02/28/24 14:00 Active
4 units SC AC
Insulin Glargine Lantus [Lantus] 12 units Med 02/27/24 22:00 Active
Subcutaneous Insulin Syringe [Syringe-Insulin] 0 unit
SC HS
Lisinopril [Zestril] Med 02/27/24 22:00 Hold
10 mg PO HS
Multivitamin [Theragran] Med 02/28/24 08:00 Active
1 tablet PO DAILY
Oxycodone [Roxicodone] Med 02/27/24 18:17 Active
10 mg PO Q4HPRN PRN
�
Vitals:�
Temp Pulse Resp BP Pulse Ox
97.6 F 85 18 139/89 95
03/02/24 07:40 03/02/24 07:40 03/02/24 07:40 03/02/24 07:40 03/02/24 08:14
Height 5 ft 8 in
Actual Weight 95.028 kg
Body Mass Index (BMI) 31.9
�
Physical Exam:�
General Appearance/Observation: Well-developed, well-nourished male in no apparent distress.�
Pain/Comfort Assessment: Denies
Mood/Affect: Appropriate�
�
Integumentary/Operative Site:�No lesions noted during course of exam
�
Eyes: Conjunctiva/Lids: normal���� Pupils: pupils equal round and reactive to light and Accommodation�
Ears/Nose/Throat: oral mucosa moist,� throat clear.������������ Lips/Teeth/Gums: normal�
Cardiovascular: Heart: regular, no murmur�
Pulses: dorsalis pedis 2+ bilaterally�
Respiratory: Respiratory Effort/Chest Expansion: normal������� Auscultation: Clear to auscultation bilaterally�
Gastrointestinal: abdomen not tender, no distension, normal abdominal bowel sounds
Genitourinary: No Rosen�
Extremities:�Edema: None�Cyanosis: None�Trophic�changes: None
�
Neurology Exam:
Orientation: Alert, Oriented to self, Time, Place�
Memory: Intact for recent medical concerns
Comprehension: Intact
Two step command: Intact
Cranial Nerves:
�� CNII:�Pupillary light reflex: Intact����
�� CN III, IV, : Extraocular muscles: Intact�
�� CN V:�Facial Sensation�at�Forehead: Intact,�Maxilla: Intact,�Mandible: Intact
�� CN VII:�Facial movement: Symmetric
�� CN VIII:�Hearing: Normal
�� CN IX/X:�Speech & swallow: Normal,�Position of Uvula: Midline
�� CN XI:�Shoulder shrug: Symmetric
�� CN XII:�Tongue protrusion: Midline
Sensory:
�� Light touch: Intact in bilateral upper and lower extremities
�
Reflexes:
�� Biceps: 0 bilaterally
�� Brachioradialis: 0 bilaterally
�� Triceps: 0 bilaterally
�� Patellar: 0 bilaterally
�� Achilles: 0 bilaterally
�� Babinski: Down going bilaterally
�� Clonus: None
�� Kem: Negative bilaterally�
Cerebellar: Dysmetria/Ataxia: None�
Musculoskeletal: Motor: (Manual muscle scale 0-5)�
Muscle SA EF WE EE FF FA HF KE DF EHL PF
Right� 4 5 5 5 4 4 3+ 4 4 4 4
Left 4 5 5 5 4 4 4 5 5 5 5
�
Tone: Normal in all extremities�
Range of Motion: Passively within normal limits in all extremities�
�
Lab Results
Laboratory Data
03/02/24 08:11
03/02/24 08:11
PT 13.3 Sec (11.4-14.6) 02/27/24 11:46
INR 1.02 02/27/24 11:46
APTT 25.9 Sec (23.4-35.0) 02/27/24 11:46
Total Bilirubin 1.1 mg/dl (0.2-1.3) 03/02/24 08:11
AST 43 U/L (17-59) 03/02/24 08:11
ALT 33 U/L (0-50) 03/02/24 08:11
Alkaline Phosphatase 71 U/L (38-126) 03/02/24 08:11
Total Protein 8.6 g/dl (6.3-8.2) H 03/02/24 08:11
Albumin 4.5 g/dl (3.5-5.0) 03/02/24 08:11
�
Diagnostic Results:�as per HPI�
MRI Lumbar spine
1. At L5-S1, spondylosis and grade 1 anterolisthesis secondary to bilateral L5 pars interarticularis spondylolysis, similar to that seen on the recent prior lumbar spine radiographs from 02/22/2024.
2. No spinal canal stenosis.
3. Mild bilateral neuroforaminal stenoses, as detailed above.
4. No abnormal postcontrast enhancement.
Cervical Spine MRI
1. Small multilevel disc herniations in the cervical spine causing mild spinal cord compression at C3/C4.
2. Moderate discogenic degenerative disease at C5/C6 and C6/C7. Severe left and moderate right neural foraminal narrowing at C5/C6 and C6/C7.
3. Mild kyphosis at C3/C4
Assessment
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
Plan�
PM&R�PT/OT to increase independence with ADLs, improve balance, coordination, endurance, strength, mobility, community reintegration, decreased burden of care on others and family education.�
�
Guillain-Angel� syndrome: Getting IVIG per neurology.
-Consider gabapentin for paresthesias, would titrate off oxycodone.
-Bilateral Multi-Podus boots�
HTN: Lisinopril on hold, monitor closely�
HLD: Statin�
DM II: Accu-Cheks, insulin sliding scale, aspart, lantus.� Was not taking insulin at home, try to wean off. Was taking Janumet, pioglitazone, glipizide
Leukopenia: Trending up, monitor.
Psych: Psychology consult.� Monitor mood, medications as needed.�
Skin: monitor for pressure sores/rashes/lesions.�
Bowel: Colace and Senna, PRN bisacodyl.�
Bladder: Time void, PVRs, PRN straight cath.�
DVT Prophylaxis: Mechanical and Lovenox.�
Pulmonary: Incentive spirometry�
Obesity: Continue to tariff counsel patient about diet adjustments to control obesity. Body habitus and increased force to move body and extremities causes further difficulty with functional tasks.�
Safety: Continue to reinforce assistance with all transfers.�
Code Status:� Full code
Dispo�(date/plan/equipment needs): Home with family care.� Social history reviewed.�
Functional and Medical Goals:�Modified Independent with ADL�s, ambulation, transfers�
Discharge Destination:�Acute inpatient rehabilitation�
Summary of recommendations:
-�Discharge Destination:�Acute inpatient rehabilitation�
Guillain-Angel� syndrome: Getting IVIG per neurology.
-Consider gabapentin for paresthesias, would titrate off oxycodone.
-Bilateral Multi-Podus boots
Bowel: Colace and Senna, PRN bisacodyl.�
Bladder: Time void, PVRs, PRN straight cath.�
DVT Prophylaxis: Mechanical and Lovenox.�
DM II: Accu-Cheks, insulin sliding scale, aspart, lantus.� Was not taking insulin at home, try to wean off. Was taking Janumet, pioglitazone, glipizide
�
Thank you for allowing me to care for your patient. Please contact me with any questions or concerns.
[2024-03-02 11:40] LABS: Glucose - Point of Care 303 mg/dl (70-99)
[2024-03-02] MEDS: NOVOLOG FLEXPEN-MODERATE RESISTANCE 7 UNITS SC (12:50)
--- NOTE | 2024-03-02 14:01 | W.DCSUMMARY ---
Discharge Summary
Discharge Data
Date of Admission: 02/27/24
Date of Discharge: 03/02/24
-
Pending Results: Yes
Additional Pending Results:
CSF Paraneoplastic Abs, CSF Angiotensin Converting Enzyme, Lyme disease serology
Hospital Course
Admission Diagnosis-
Guillain-Angel� syndrome
Conditions Prior to Admission-
NIDDM
Melanoma
Hospital Course-
63-year-old male with past medical history of tko-[id number]-[id number] diabetes presented to the emergency department due to progressive weakness in his bilateral extremities. Patient had been having multiple falls in the 5 days prior to arrival to the
ED which were precipitated by his legs feeling wobbly and giving away. Patient also complained of right sided lower extremity pain that radiated from his back down to his lower extremity. Patient's non-insulin dependent diabetes II had been managed
well according to him via his oral antiglycemic agents, however he stated that he hasn't been diligent with his diet or medications because of increased pain. Patient underwent EMG in the ED which showed findings classic for Guillain-Angel�. Patient
underwent lumbar spine MRI which showed spondylosis and grade 1 anterolisthesis secondary to bilateral L5 pars interarticularis spondylolysis, similar to that seen on the recent prior lumbar spine radiographs from 02/22/2024. Patient was admitted to
the hospital at this time, and was started on IV IgG for 5 days as per Neurologist recommendation.
Patient continued to be monitored and IR was consulted for a lumbar puncture. Patient's respiratory effort continued to be measured with NIF/VC and also was started on incentive spirometery. Patient's diabetes was managed with insulin and carb
controlled diet. Patient underwent successful lumbar puncture with post procedure complications. Patient continued to be given IV IgG and patient's lower extremity strength continued to improve over the course of his admission. Patient underwent MRI
Cervical spine on 03/01/2024 which showed small multilevel disc herniations in the cervical spine causing mild spinal cord compression at C3/C4, moderate discogenic degenerative disease at C5/C6 and C6/C7. Severe left and moderate right neural
foraminal narrowing at C5/C6 and C6/C7, and mild kyphosis at C3/C4.
Patient finished his course of IV IgG and was discharged home as he did not have insurance and could not afford rehab services. Patient advised to follow up with neurology and continue rehabbing at home with instructions to get at least 3 hours of
therapy in the day.
Patient's hyperglycemia due to diabetes was managed with insulin therapy during his time at the hospital. He is to switch back to oral anti-hyperglycemic agents once discharged and follow up with PCP about his un-managed hyperglycemia. Patient also
counseled to make an appointment with Dr. Sales and Neurology and see them within 1-2 weeks.
Patient's other conditions were managed with home medications.
Discharge Plan
-
Patient Disposition: Home (Routine Discharge)
Discharge Diagnosis/Procedures: Guillain-Angel� syndrome
Diet: Diabetic, Carb Controlled
Activity: With Walker
Driving Restrictions: Not until seen by your Dr
Bathing Restrictions: None
Activity Restrictions/Additional Instructions:
Your MR cervical spine noted small multilevel disc herniations in the cervical spine causing mild spinal cord compression at C3/C4- this can be evaluated with neurosurgery outpatient
Referrals:
Jonah Sales MD [Active] - (Please set up an appointment with Dr. Sales and be seen within 1-2 weeks.)
Te Ba MD [Family Provider] - (Follow up with PCP regarding Diabetes management (HbA1c 8.7))
Additional Discharge Medication Instructions: Continue anti-hyperglycemic medication from prior to admission
Prescriptions:
Continued
glipizide 10 mg Tablet
10 mg PO BID
simvastatin 10 mg Tablet
10 mg PO HS
pioglitazone 45 mg Tablet
45 mg PO DAILY
lisinopril 10 mg Tablet
10 mg PO HS
Janumet 50-1,000 mg Tablet
1 tab PO BID
therapeutic multivitamin Tablet
1 tab PO DAILY
aspirin 81 mg Tablet,Delayed Release (Dr/Ec)
81 mg PO HS
ibuprofen 200 mg Tablet
600 mg PO Q6HPRN PRN (Reason: mild pain)
Discharge Orders:
Discharge Patient (As Directed); Ordered 03/02/24
Ordered By: Kristin Velazquez
Discharge Date and Time
Print Language: UKRAINIAN
[2024-03-02 15:03] LABS: Lyme Disease DNA by PCR Not Detected; Lyme Source CSF
[2024-03-02] MEDS: GAMMAGARD 200 IV (15:27)
[2024-03-02] MEDS: FLUSH (NSS) 1 FLUSH IV (15:28)
--- NOTE | 2024-03-02 15:29 | CM ---
Spoke with Cecilia from [facility] pt does not have inpatient insurance.
Cecilia had spoke with pt on what information he needed to submit to apply for insurance.
Spoke with pt at bedside explained with no insurance he can not receive acute rehab of [facility] .
He said he understood.He said his son Enrrique can drive him home.
Pt is self employed.
He has a walker at home.
PLAN Home
--- NOTE | 2024-03-02 16:08 | PTCARENOTE ---
Pt AAO x3, RICH; OOB to chair/ambulatory to BR with minimal assistance/walker; kee well; legs weak. Pt ambulated in mazariegos with PT/walker, Multipodis boots at bedside. VSS. Telemetry:NSR/ST with PAC's. On room air, pulseox 95%, no SOB noted. Abd
large, soft, kee PO well. Voiding in BR without difficulty. Resting in chair at present; IvIg infusing without adverse effect. Will continue to monitor.
[2024-03-02 16:45] LABS: Glucose - Point of Care 184 mg/dl (70-99)
[2024-03-02] MEDS: GAMMAGARD 50 IV (18:03)
[2024-03-02] MEDS: NOVOLOG FLEXPEN-MODERATE RESISTANCE 1 UNITS SC (18:07)
[2024-03-02] MEDS: LOVENOX SC (18:26)
[2024-03-03 04:01] LABS: Angiotensin-1- Converting, CSF <0.4 U/L (0.0-2.5)
[2024-03-03 18:14] LABS: Paraneoplastic Ab IgG, CSF None Detected (None Detected)
== END 2024-03-02 18:51 | disposition home or self-care (01) | DRG 95 ==
LOC: 4 EAST ACU 15:54
PROVIDERS: Physician Assistant Medical; Radiology Vascular & Interventional Radiology; Student in an Organized Health Care Education/Training Program; ADMITTING PHYSICIAN Hospitalist; ATTENDING PHYSICIAN Internal Medicine; CONSULT PHYSICIAN Physical Medicine & Rehabilitation; EMERGENCY PHYSICIAN Emergency Medicine; FAMILY PHYSICIAN Family Medicine; REFERRING PHYSICIAN Psychiatry & Neurology Neurology
PROC: 009U3ZX Drainage of Spinal Canal, Percutaneous Approach, Diagnostic (ICD-10-PCS; 2024-02-28)
DX: G61.0 Guillain-Barre syndrome (principal); E87.1 Hypo-osmolality and hyponatremia; M50.022 Cervical disc disorder at C5-C6 level with myelopathy; M50.023 Cervical disc disorder at C6-C7 level with myelopathy; E11.65 Type 2 diabetes mellitus with hyperglycemia; I10 Essential (primary) hypertension; D72.819 Decreased white blood cell count, unspecified; E87.5 Hyperkalemia; E78.5 Hyperlipidemia, unspecified; M40.202 Unspecified kyphosis, cervical region; M47.27 Other spondylosis with radiculopathy, lumbosacral region; M48.07 Spinal stenosis, lumbosacral region; M48.02 Spinal stenosis, cervical region; R29.6 Repeated falls; S49.90XA Unspecified injury of shoulder and upper arm, unspecified arm, initial encounter; Y99.0 Civilian activity done for income or pay; Z85.820 Personal history of malignant melanoma of skin
CPT/HCPCS: 62328; 70030; 72141; 72158; 80048; 80053; 81003; 82040; 82042; 82164; 82784; 82945; 82962; 83036; 83873; 83916; 84157; 85025; 85610; 85652; 85730; 86140; 86255; 87015; 87070; 87205; 87476; 87483; 87502; 87811; 89051; 95886; 95911; 97116; 97163; 97167; 97530; 99284; J1569